=== PATIENT | female | born 1960 | race Two or more races ===

== ENCOUNTER 2021-05-01 16:27 | Emergency (ER) | payer OTHER ==
[~2021-05-01] VITALS: Ht 162.6 cm; Wt 86.2 kg
[2021-05-01 19:41] LABS: Basophils # (auto) 0 10 ^3/uL (0-0.2); Basophils % (auto) 0.3 % (0.0-2.0); Eosinophils # (auto) 0 10 ^3/uL (0-0.8); Eosinophils % (auto) 0.4 % (0.0-7.0); Hematocrit 43.4 % (36.0-46.0); Hemoglobin 14.7 g/dL (12.2-16.2); Lymphocytes # (auto) 1.9 10 ^3/uL (0.4-5.4); Lymphocytes % (auto) 33.6 % (10.0-50.0); Mean Corpuscular Hemoglobin 29.1 pg (28.0-32.0); Mean Corpuscular Hgb Conc. 33.9 g/dL (32.0-36.0); Monocytes # (auto) 0.6 10 ^3/uL (0-1.3); Monocytes % (auto) 10.4 % (0.0-12.0); Neutrophils # (auto) 3.2 10 ^3/uL (1.6-8.6); Neutrophils % (auto) 55.3 % (37.0-80.0); Nucleated Red Blood Cells % 0.2 %; Red Blood Cells 5.05 10^6/uL (4.0-5.20); Red Cell Distribution Width 13.1 % (11.8-14.3); White Blood Cell 5.8 10^3/uL (4.4-10.8)
[2021-05-01 19:57] LABS: Albumin 3.8 g/dL (3.4-5.0); Calcium 9.6 mg/dL (8.5-10.1); Potassium 4.5 mmol/L (3.5-5.1)
[2021-05-01 20:05] LABS: BUN/Creatinine Ratio 20.9; Bilirubin, Total 0.4 mg/dL (0.2-1.0); Total Protein 7.7 g/dL (6.4-8.2)
[2021-05-01] MEDS ORDERED: PRED20TA2 PO (21:45)
[2021-05-01] MEDS ORDERED: GUAI600T23 PO (21:45)
[2021-05-01] MEDS ORDERED: ALBU108A5 IN (21:45)
[2021-05-01 22:13] VITALS: BP 137/64
== END 2021-05-01 21:52 | disposition home or self-care (01) ==
LOC: ER 16:27
DX: U07.1 COVID-19 (principal); R06.02 Shortness of breath
CPT/HCPCS: 36415; 70450; 71045; 80053; 83880; 84484; 85025; 85379; 87426; 93005

== ENCOUNTER → 2022-06-16 | Outpatient (CLI) | payer OTHER ==
[~2022-06-16] MED LIST: ALBU108A5 IN; GUAI600T23 PO; PRED20TA2 PO
[2022-06-16 08:58] LABS: Basophils # (auto) 0.1 10 ^3/uL (0-0.2); Basophils % (auto) 0.6 % (0.0-2.0); Eosinophils # (auto) 0.1 10 ^3/uL (0-0.8); Eosinophils % (auto) 1.4 % (0.0-7.0); Hematocrit 44.1 % (36.0-46.0); Hemoglobin 14.6 g/dL (12.2-16.2); Lymphocytes # (auto) 1.9 10 ^3/uL (0.4-5.4); Mean Corpuscular Hemoglobin 29.2 pg (28.0-32.0); Mean Corpuscular Volume 88.5 fL (80.0-100.0); Monocytes # (auto) 0.6 10 ^3/uL (0-1.3); Monocytes % (auto) 6.4 % (0.0-12.0); Neutrophils # (auto) 6.6 10 ^3/uL (1.6-8.6); Neutrophils % (auto) 71.6 % (37.0-80.0); Red Blood Cells 4.98 10^6/uL (4.0-5.20); Red Cell Distribution Width 13.5 % (11.8-14.3); White Blood Cell 9.2 10^3/uL (4.4-10.8)
[2022-06-16 09:37] LABS: Urine Bacteria NONE SEEN /hpf (None Seen); Urine Blood Negative /uL (Negative); Urine Hyaline Cast MOD /lpf (0 - 2); Urine Mucus FEW (None Seen); Urine Specific Gravity 1.023 (1.001-1.035); Urine WBC 5 /hpf (0 - 5)
[2022-06-16 09:54] LABS: Albumin 3.5 g/dL (3.4-5.0); Calcium 8.8 mg/dL (8.5-10.1); Potassium 4.5 mmol/L (3.5-5.1); Total Protein 7.3 g/dL (6.4-8.2)
[2022-06-16 09:56] LABS: Bilirubin, Total 0.5 mg/dL (0.2-1.0)
== END | disposition home or self-care (01) ==
LOC: LAB 08:37
PROVIDERS: ATTEND Internal Medicine
DX: Z12.11 Encounter for screening for malignant neoplasm of colon (principal); E78.00 Pure hypercholesterolemia, unspecified; E11.69 Type 2 diabetes mellitus with other specified complication; R68.89 Other general symptoms and signs
CPT/HCPCS: 36415; 80053; 80061; 81001; 83036; 85025

== ENCOUNTER → 2022-09-24 | Outpatient (CLI) | payer OTHER ==
[2022-09-24 08:17] LABS: Basophils # (auto) 0 10 ^3/uL (0-0.2); Basophils % (auto) 0.9 % (0.0-2.0); Eosinophils # (auto) 0.1 10 ^3/uL (0-0.8); Eosinophils % (auto) 2.3 % (0.0-7.0); Hematocrit 43.2 % (36.0-46.0); Hemoglobin 14.4 g/dL (12.2-16.2); Lymphocytes # (auto) 1.4 10 ^3/uL (0.4-5.4); Lymphocytes % (auto) 26.2 % (10.0-50.0); Mean Corpuscular Hemoglobin 29.1 pg (28.0-32.0); Mean Corpuscular Hgb Conc. 33.4 g/dL (32.0-36.0); Mean Corpuscular Volume 87.1 fL (80.0-100.0); Monocytes # (auto) 0.3 10 ^3/uL (0-1.3); Monocytes % (auto) 6.4 % (0.0-12.0); Neutrophils # (auto) 3.5 10 ^3/uL (1.6-8.6); Neutrophils % (auto) 64.2 % (37.0-80.0); Nucleated Red Blood Cells % 0.1 %; Red Blood Cells 4.96 10^6/uL (4.0-5.20); Red Cell Distribution Width 13.8 % (11.8-14.3); White Blood Cell 5.4 10^3/uL (4.4-10.8)
[2022-09-24 09:00] LABS: Albumin 3.5 g/dL (3.4-5.0)
[2022-09-24 09:08] LABS: Bilirubin, Total 0.8 mg/dL (0.2-1.0); Calcium 9.1 mg/dL (8.5-10.1); Total Protein 7.3 g/dL (6.4-8.2)
[2022-09-24 09:12] LABS: Free T3 2.63 pg/mL (2.3-4.2)
[2022-09-24 09:31] LABS: Potassium 5.6 mmol/L (3.5-5.1)
== END | disposition home or self-care (01) ==
LOC: LAB 08:06
PROVIDERS: ATTEND Internal Medicine
DX: I10 Essential (primary) hypertension (principal); R06.02 Shortness of breath; E78.00 Pure hypercholesterolemia, unspecified
CPT/HCPCS: 36415; 80053; 80061; 84439; 84443; 84481; 85025

== ENCOUNTER → 2022-09-25 | Outpatient (CLI) | payer OTHER | END | disposition home or self-care (01) | LOC: XYW 09-23 08:50 | PROVIDERS: ATTEND Internal Medicine | DX: I07.1 Rheumatic tricuspid insufficiency (principal); R07.89 Other chest pain | CPT/HCPCS: 93306 ==

== ENCOUNTER → 2022-10-08 | Outpatient (CLI) | payer OTHER ==
[2022-10-08 11:26] LABS: Urine WBC None Seen /hpf (0 - 5)
[2022-10-08 11:43] LABS: Urine Bacteria NONE SEEN /hpf (None Seen); Urine Blood Negative /uL (Negative); Urine Specific Gravity 1.005 (1.001-1.035)
[2022-10-08 12:35] LABS: BUN/Creatinine Ratio 24.8 (10.0-20.0); Potassium 4.9 mmol/L (3.5-5.1)
== END | disposition home or self-care (01) ==
LOC: LAB 11:10
PROVIDERS: ATTEND Internal Medicine Gastroenterology
DX: K59.02 Outlet dysfunction constipation (principal)
CPT/HCPCS: 36415; 80048; 81001

== ENCOUNTER 2022-10-13 15:59 | Emergency (ER) | payer OTHER, MEDICAID ==
[~2022-10-13] VITALS: Ht 162.6 cm; Wt 98.0 kg
[2022-10-13 16:49] LABS: Basophils # (auto) 0.1 10 ^3/uL (0-0.2); Basophils % (auto) 0.6 % (0.0-2.0); Eosinophils # (auto) 0 10 ^3/uL (0-0.8); Eosinophils % (auto) 0.2 % (0.0-7.0); Hematocrit 41.8 % (36.0-46.0); Hemoglobin 13.8 g/dL (12.2-16.2); Lymphocytes # (auto) 2.4 10 ^3/uL (0.4-5.4); Lymphocytes % (auto) 15.2 % (10.0-50.0); Mean Corpuscular Hemoglobin 28.5 pg (28.0-32.0); Mean Corpuscular Volume 86.3 fL (80.0-100.0); Monocytes # (auto) 1.1 10 ^3/uL (0-1.3); Monocytes % (auto) 6.8 % (0.0-12.0); Neutrophils # (auto) 12.2 10 ^3/uL (1.6-8.6); Neutrophils % (auto) 77.2 % (37.0-80.0); Nucleated Red Blood Cells % 0.1 %; Red Blood Cells 4.85 10^6/uL (4.0-5.20); White Blood Cell 15.7 10^3/uL (4.4-10.8)
[2022-10-13 17:08] LABS: Albumin 3.8 g/dL (3.4-5.0); Potassium 4.6 mmol/L (3.5-5.1)
[2022-10-13 17:10] LABS: INR 0.99 (0.9-1.15); Partial Thromboplastin Time 27.3 SEC (24.5-34.5)
[2022-10-13 17:12] LABS: BUN/Creatinine Ratio 27.8 (10.0-20.0); Bilirubin, Total 0.5 mg/dL (0.2-1.0); Total Protein 7.3 g/dL (6.4-8.2)
[2022-10-13 17:15] LABS: Urine Bacteria FEW /hpf (None Seen); Urine Blood Negative /uL (Negative); Urine Hyaline Cast MOD /lpf (0 - 2); Urine Mucus FEW (None Seen); Urine Specific Gravity 1.026 (1.001-1.035); Urine WBC 7 /hpf (0 - 5)
[2022-10-13] MEDS ORDERED: IOHEXOL 350 MG/ML 100ML IJ ONE ×2 (20:01→20:02)
[2022-10-13] MEDS ORDERED: TIOTCAP IN (20:50)
[2022-10-13] MEDS ORDERED: NITR-87 PO (20:50)
[2022-10-13 21:16] VITALS: BP 112/66
== END 2022-10-13 21:18 | disposition home or self-care (01) ==
LOC: ER 15:59
DX: N39.0 Urinary tract infection, site not specified (principal); R06.02 Shortness of breath; J44.9 Chronic obstructive pulmonary disease, unspecified; E11.9 Type 2 diabetes mellitus without complications; Z79.899 Other long term (current) drug therapy; Z90.49 Acquired absence of other specified parts of digestive tract
CPT/HCPCS: 36415; 71045; 71275; 80053; 81001; 84484; 85025; 85610; 85730; 99285; Q9967; 93005

== ENCOUNTER → 2022-12-24 | Outpatient (CLI) | payer OTHER ==
[~2022-12-24] MED LIST changes: +NITR-87 PO; +TIOTCAP IN
[2022-12-24 08:47] LABS: Basophils # (auto) 0 10 ^3/uL (0-0.2); Basophils % (auto) 0.8 % (0.0-2.0); Eosinophils # (auto) 0.1 10 ^3/uL (0-0.8); Eosinophils % (auto) 2.7 % (0.0-7.0); Hematocrit 42.7 % (36.0-46.0); Hemoglobin 14.2 g/dL (12.2-16.2); Lymphocytes # (auto) 1.3 10 ^3/uL (0.4-5.4); Lymphocytes % (auto) 24.6 % (10.0-50.0); Mean Corpuscular Hemoglobin 29.3 pg (28.0-32.0); Mean Corpuscular Hgb Conc. 33.3 g/dL (32.0-36.0); Monocytes # (auto) 0.3 10 ^3/uL (0-1.3); Monocytes % (auto) 6.6 % (0.0-12.0); Neutrophils # (auto) 3.4 10 ^3/uL (1.6-8.6); Neutrophils % (auto) 65.3 % (37.0-80.0); Red Blood Cells 4.85 10^6/uL (4.0-5.20); Red Cell Distribution Width 14.3 % (11.8-14.3); White Blood Cell 5.2 10^3/uL (4.4-10.8)
[2022-12-24 08:56] LABS: Urine Bacteria NONE SEEN /hpf (None Seen); Urine Blood Negative /uL (Negative); Urine Clarity Clear (Clear); Urine Color Yellow (Yellow); Urine Mucus FEW (None Seen); Urine Protein, UAD Negative (Negative); Urine Specific Gravity 1.019 (1.001-1.035); Urine Urobilinogen Normal (Negative); Urine WBC 7 /hpf (0 - 5); Urine pH 5.5 (5.0-8.0)
[2022-12-24 09:29] LABS: Alanine Aminotransferase 19 U/L (7-40); Albumin 4.8 g/dL (3.2-4.8); Alkaline Phosphatase 67 U/L (46-116); Anion Gap 5 (5-15); Aspartate Aminotransferase 15 U/L (13-40); BUN/Creatinine Ratio 19.3 (10.0-20.0); Blood Urea Nitrogen 22 mg/dL (9-23); Calcium 9.7 mg/dL (8.7-10.4); Carbon Dioxide 25 mmol/L (20-30); Chloride 111 mmol/L (98-107); Glucose 103 mg/dL (74-106); Potassium 5.1 mmol/L (3.5-5.1); Sodium 141 mmol/L (136-145)
[2022-12-24 09:30] LABS: Bilirubin, Total 0.7 mg/dL (0.2-1.0); Total Protein 7.2 g/dL (5.7-8.2)
[2022-12-24 09:42] LABS: Triglycerides 90 mg/dL (< 150)
[2022-12-24 09:43] LABS: LDL Cholesterol 99 mg/dL (< 100)
[2022-12-24 09:44] LABS: Cholesterol 173 mg/dL (< 200); HDL Cholesterol 61 mg/dL (40-59)
== END | disposition home or self-care (01) ==
LOC: LAB 08:22
PROVIDERS: ATTEND Internal Medicine
DX: Z12.11 Encounter for screening for malignant neoplasm of colon (principal); E11.69 Type 2 diabetes mellitus with other specified complication; E78.00 Pure hypercholesterolemia, unspecified
CPT/HCPCS: 36415; 80053; 80061; 81001; 83036; 85025

== ENCOUNTER → 2023-01-16 | Outpatient (CLI) | payer OTHER, MEDICAID ==
[~2023-01-16] MED LIST changes: +ALBUTEROL SULF 2.5 MG/0.5ML(0.5%) NEB SOLN ONE
== END | disposition home or self-care (01) ==
LOC: RT 10:52
PROVIDERS: ATTEND Internal Medicine Pulmonary Disease
DX: J44.9 Chronic obstructive pulmonary disease, unspecified (principal); R06.09 Other forms of dyspnea
CPT/HCPCS: 94060; 94727; 94729

== ENCOUNTER → 2023-05-18 | Outpatient (CLI) | payer OTHER ==
[~2023-05-18] MED LIST changes: -ALBUTEROL SULF 2.5 MG/0.5ML(0.5%) NEB SOLN ONE
[2023-05-18 10:10] LABS: Basophils # (auto) 0 10 ^3/uL (0-0.2); Basophils % (auto) 0.6 % (0.0-2.0); Eosinophils # (auto) 0.1 10 ^3/uL (0-0.8); Eosinophils % (auto) 2.3 % (0.0-7.0); Hematocrit 42.6 % (36.0-46.0); Hemoglobin 14.1 g/dL (12.2-16.2); Lymphocytes # (auto) 1.3 10 ^3/uL (0.4-5.4); Lymphocytes % (auto) 26.3 % (10.0-50.0); Mean Corpuscular Hemoglobin 28.9 pg (28.0-32.0); Mean Corpuscular Volume 87.6 fL (80.0-100.0); Monocytes # (auto) 0.3 10 ^3/uL (0-1.3); Monocytes % (auto) 5.9 % (0.0-12.0); Neutrophils # (auto) 3.3 10 ^3/uL (1.6-8.6); Neutrophils % (auto) 64.9 % (37.0-80.0); Red Blood Cells 4.86 10^6/uL (4.0-5.20); Red Cell Distribution Width 13.6 % (11.8-14.3)
[2023-05-18 10:28] LABS: Alanine Aminotransferase 21 U/L (7-40); Alkaline Phosphatase 71 U/L (46-116); Anion Gap 6 (5-15); BUN/Creatinine Ratio 15.3 (10.0-20.0); Blood Urea Nitrogen 19 mg/dL (9-23); Calcium 9.7 mg/dL (8.5-10.1); Carbon Dioxide 23 mmol/L (20-30); Chloride 113 mmol/L (98-107); Glucose 182 mg/dL (74-106); LDL Cholesterol 98 mg/dL (< 100); Sodium 142 mmol/L (136-145); Triglycerides 98 mg/dL (< 150)
[2023-05-18 10:29] LABS: Albumin 4.3 g/dL (3.2-4.8); Bilirubin, Total 0.7 mg/dL (0.2-1.0); Cholesterol 159 mg/dL (< 200); HDL Cholesterol 51 mg/dL (40-59); Total Protein 6.6 g/dL (5.7-8.2)
[2023-05-18 10:48] LABS: Aspartate Aminotransferase 26 U/L (13-40)
[2023-05-18 11:18] LABS: Potassium 5.8 mmol/L (3.5-5.1)
[2023-05-18 11:34] LABS: Free T3 3.23 pg/mL (2.3-4.2); Free T4 (Free Thyroxine) 1.25 ng/dL (0.89-1.76)
== END | disposition home or self-care (01) ==
LOC: LAB 09:07
PROVIDERS: ATTEND Internal Medicine
DX: E11.65 Type 2 diabetes mellitus with hyperglycemia (principal); R06.02 Shortness of breath; R00.2 Palpitations; I10 Essential (primary) hypertension
CPT/HCPCS: 36415; 80053; 80061; 83036; 84439; 84443; 84481; 85025

== ENCOUNTER → 2023-05-19 | Outpatient (CLI) | payer OTHER | END | disposition home or self-care (01) | LOC: LAB 14:11 | PROVIDERS: ATTEND Internal Medicine | DX: I10 Essential (primary) hypertension (principal); E78.5 Hyperlipidemia, unspecified | CPT/HCPCS: 36415; 84132 ==

== ENCOUNTER → 2023-06-03 | Outpatient (CLI) | payer OTHER ==
[2023-06-03 12:26] LABS: Alanine Aminotransferase 21 U/L (7-40); Albumin 4.4 g/dL (3.2-4.8); Alkaline Phosphatase 67 U/L (46-116); Anion Gap 9 (5-15); Aspartate Aminotransferase 20 U/L (13-40); BUN/Creatinine Ratio 20.5 (10.0-20.0); Bilirubin, Total 0.7 mg/dL (0.2-1.0); Blood Urea Nitrogen 23 mg/dL (9-23); Calcium 9.8 mg/dL (8.5-10.1); Carbon Dioxide 22 mmol/L (20-30); Chloride 109 mmol/L (98-107); Glucose 158 mg/dL (74-106); Potassium 4.7 mmol/L (3.5-5.1); Sodium 140 mmol/L (136-145)
== END | disposition home or self-care (01) ==
LOC: LAB 10:40
PROVIDERS: ATTEND Internal Medicine
DX: I10 Essential (primary) hypertension (principal)
CPT/HCPCS: 36415; 80053

== ENCOUNTER → 2023-06-17 | Outpatient (CLI) | payer OTHER ==
[2023-06-17 10:19] LABS: Alanine Aminotransferase 29 U/L (7-40); Albumin 4.4 g/dL (3.2-4.8); Alkaline Phosphatase 69 U/L (46-116); Anion Gap 6 (5-15); Aspartate Aminotransferase 34 U/L (13-40); BUN/Creatinine Ratio 16.5 (10.0-20.0); Blood Urea Nitrogen 19 mg/dL (9-23); Calcium 9.7 mg/dL (8.5-10.1); Carbon Dioxide 26 mmol/L (20-30); Chloride 111 mmol/L (98-107); Cholesterol 154 mg/dL (< 200); Glucose 116 mg/dL (74-106); HDL Cholesterol 50 mg/dL (40-59); LDL Cholesterol 89 mg/dL (< 100); Potassium 5.4 mmol/L (3.5-5.1); Sodium 143 mmol/L (136-145); Triglycerides 110 mg/dL (< 150)
[2023-06-17 10:20] LABS: Total Protein 6.8 g/dL (5.7-8.2)
[2023-06-17 10:22] LABS: Basophils # (auto) 0 10 ^3/uL (0-0.2); Basophils % (auto) 0.6 % (0.0-2.0); Eosinophils # (auto) 0.1 10 ^3/uL (0-0.8); Hemoglobin 13.8 g/dL (12.2-16.2); Lymphocytes # (auto) 1.5 10 ^3/uL (0.4-5.4); Lymphocytes % (auto) 24.5 % (10.0-50.0); Mean Corpuscular Hemoglobin 28.5 pg (28.0-32.0); Mean Corpuscular Hgb Conc. 32.8 g/dL (32.0-36.0); Monocytes # (auto) 0.4 10 ^3/uL (0-1.3); Monocytes % (auto) 7.5 % (0.0-12.0); Neutrophils # (auto) 3.9 10 ^3/uL (1.6-8.6); Neutrophils % (auto) 65.4 % (37.0-80.0); Nucleated Red Blood Cells % 0.1 %; Red Blood Cells 4.82 10^6/uL (4.0-5.20); Red Cell Distribution Width 13.6 % (11.8-14.3); White Blood Cell 5.9 10^3/uL (4.4-10.8)
[2023-06-17 12:20] LABS: Creatinine, Urine 81.8 mg/dL (30.0-125.0)
== END | disposition home or self-care (01) ==
LOC: LAB 09:44
PROVIDERS: ATTEND Internal Medicine
DX: Z12.11 Encounter for screening for malignant neoplasm of colon (principal); E78.00 Pure hypercholesterolemia, unspecified; R68.89 Other general symptoms and signs; E11.69 Type 2 diabetes mellitus with other specified complication
CPT/HCPCS: 36415; 80053; 80061; 82043; 82570; 83036; 85025

== ENCOUNTER 2023-07-07 09:24 | Day surgery (SDC) | payer OTHER, MEDICAID ==
[2023-07-01 11:17] LABS: Basophils # (auto) 0.1 10 ^3/uL (0-0.2); Eosinophils # (auto) 0.1 10 ^3/uL (0-0.8); Eosinophils % (auto) 1.7 % (0.0-7.0); Hematocrit 44.4 % (36.0-46.0); Hemoglobin 14.6 g/dL (12.2-16.2); Lymphocytes # (auto) 1.8 10 ^3/uL (0.4-5.4); Lymphocytes % (auto) 26.5 % (10.0-50.0); Mean Corpuscular Hemoglobin 28.7 pg (28.0-32.0); Mean Corpuscular Hgb Conc. 32.9 g/dL (32.0-36.0); Mean Corpuscular Volume 87.2 fL (80.0-100.0); Monocytes # (auto) 0.4 10 ^3/uL (0-1.3); Monocytes % (auto) 6.7 % (0.0-12.0); Neutrophils # (auto) 4.3 10 ^3/uL (1.6-8.6); Neutrophils % (auto) 64.1 % (37.0-80.0); Nucleated Red Blood Cells % 0.1 %; Red Cell Distribution Width 13.9 % (11.8-14.3); White Blood Cell 6.6 10^3/uL (4.4-10.8)
[2023-07-01 11:39] LABS: INR 0.97 (0.9-1.15); Partial Thromboplastin Time 30.4 SEC (24.5-34.5); Prothrombin Time 10.2 sec (9.3-11.8)
[2023-07-01 12:16] LABS: Alanine Aminotransferase 21 U/L (7-40); Albumin 4.5 g/dL (3.2-4.8); Alkaline Phosphatase 72 U/L (46-116); Anion Gap 5 (5-15); Aspartate Aminotransferase 21 U/L (13-40); BUN/Creatinine Ratio 22.5 (10.0-20.0); Bilirubin, Total 0.8 mg/dL (0.2-1.0); Blood Urea Nitrogen 27 mg/dL (9-23); Calcium 9.8 mg/dL (8.7-10.4); Carbon Dioxide 25 mmol/L (20-30); Chloride 111 mmol/L (98-107); Glucose 142 mg/dL (74-106); Potassium 5.4 mmol/L (3.5-5.1); Sodium 141 mmol/L (136-145); Total Protein 7.4 g/dL (5.7-8.2)
[~2023-07-07] VITALS: Ht 162.6 cm; Wt 97.5 kg
[~2023-07-07 09:24] MED LIST changes: -ALBU108A5 IN; +GLYB5TAB9 PO; -GUAI600T23 PO; +LOSA-533 PO; +LOVA20TA4 PO; +METF-370 PO; -NITR-87 PO; -PRED20TA2 PO; -TIOTCAP IN
[2023-07-07] MEDS ORDERED: SODIUM CHLORIDE LOCK 10 ML ONE (09:31)
[2023-07-07 11:03] VITALS: O2SAT 98
[2023-07-07] MEDS: MIDAZOLAM HCL 5 MG/ML-1ML VIAL ONE (11:12)
[2023-07-07] MEDS: diphenhdrAMINE HCL 50 MG/1 ML VL ONE (11:12)
[2023-07-07] MEDS: fentaNYL CITRATE 100 MCG/2 ML VL ONE (11:12)
[2023-07-07 11:44] VITALS: TEMP 97.2; O2SAT 100
[2023-07-07 12:14] VITALS: BP 129/75; PULSE 71; RESP 12; O2SAT 99
== END 2023-07-07 12:20 | disposition home or self-care (01) ==
LOC: GI 09:24
PROVIDERS: ATTEND Internal Medicine Gastroenterology
DX: K59.00 Constipation, unspecified (principal); D12.0 Benign neoplasm of cecum; D12.4 Benign neoplasm of descending colon; D12.3 Benign neoplasm of transverse colon; D17.5 Benign lipomatous neoplasm of intra-abdominal organs; K57.30 Diverticulosis of large intestine without perforation or abscess without bleeding; K64.8 Other hemorrhoids; I12.9 Hypertensive chronic kidney disease with stage 1 through stage 4 chronic kidney disease, or unspecified chronic kidney disease; E11.22 Type 2 diabetes mellitus with diabetic chronic kidney disease; N18.30 Chronic kidney disease, stage 3 unspecified; M19.90 Unspecified osteoarthritis, unspecified site; E78.00 Pure hypercholesterolemia, unspecified; J44.9 Chronic obstructive pulmonary disease, unspecified; Z86.010 Personal history of colon polyps; Z90.49 Acquired absence of other specified parts of digestive tract; Z98.41 Cataract extraction status, right eye; Z87.891 Personal history of nicotine dependence; Z98.42 Cataract extraction status, left eye; Z98.890 Other specified postprocedural states; Z79.84 Long term (current) use of oral hypoglycemic drugs; Z79.899 Other long term (current) drug therapy
CPT/HCPCS: 36415; 45380; 45385; 80053; 82962; 85025; 85610; 85730; 88305; J1200; J2250; J3010; J7030; 99152; 99153

== ENCOUNTER → 2023-10-26 | Outpatient (CLI) | payer OTHER ==
[2023-10-26 08:05] LABS: Basophils # (auto) 0.1 10 ^3/uL (0-0.2); Eosinophils # (auto) 0.1 10 ^3/uL (0-0.8); Eosinophils % (auto) 2.3 % (0.0-7.0); Hematocrit 42.7 % (36.0-46.0); Hemoglobin 14.3 g/dL (12.2-16.2); Lymphocytes # (auto) 1.9 10 ^3/uL (0.4-5.4); Lymphocytes % (auto) 29.6 % (10.0-50.0); Mean Corpuscular Hemoglobin 28.8 pg (28.0-32.0); Mean Corpuscular Hgb Conc. 33.5 g/dL (32.0-36.0); Mean Corpuscular Volume 85.9 fL (80.0-100.0); Monocytes # (auto) 0.4 10 ^3/uL (0-1.3); Monocytes % (auto) 6.4 % (0.0-12.0); Neutrophils # (auto) 3.8 10 ^3/uL (1.6-8.6); Neutrophils % (auto) 60.7 % (37.0-80.0); Nucleated Red Blood Cells % 0.1 %; Red Blood Cells 4.97 10^6/uL (4.0-5.20); Red Cell Distribution Width 13.8 % (11.8-14.3); White Blood Cell 6.3 10^3/uL (4.4-10.8)
[2023-10-26 09:41] LABS: Albumin 4.2 g/dL (3.2-4.8); Bilirubin, Direct 0.3 mg/dL (<0.3); Bilirubin, Total 0.8 mg/dL (0.2-1.0); Total Protein 6.6 g/dL (5.7-8.2)
[2023-10-26 09:43] LABS: Protein, Urine 30.7 mg/dL (0.0-11.9)
[2023-10-26 09:46] LABS: Creatinine, Urine 143.29 mg/dL (30.0-125.0); Urine Protein/Creatinine Ratio 0.21
[2023-10-26 12:34] LABS: Uric Acid 6.2 mg/dL (3.1-7.8)
== END | disposition home or self-care (01) ==
LOC: LAB 07:41
PROVIDERS: ATTEND Internal Medicine
DX: R80.9 Proteinuria, unspecified (principal); E22.9 Hyperfunction of pituitary gland, unspecified; D63.1 Anemia in chronic kidney disease; N18.30 Chronic kidney disease, stage 3 unspecified
CPT/HCPCS: 36415; 80076; 82570; 83036; 84156; 84550; 85025

== ENCOUNTER → 2023-11-02 | Outpatient (CLI) | payer OTHER ==
[2023-11-02 14:17] LABS: Basophils # (auto) 0.1 10 ^3/uL (0-0.2); Basophils % (auto) 0.8 % (0.0-2.0); Eosinophils # (auto) 0.1 10 ^3/uL (0-0.8); Eosinophils % (auto) 1.8 % (0.0-7.0); Hematocrit 43.4 % (36.0-46.0); Hemoglobin 14.5 g/dL (12.2-16.2); Lymphocytes # (auto) 2.2 10 ^3/uL (0.4-5.4); Lymphocytes % (auto) 29.5 % (10.0-50.0); Mean Corpuscular Hemoglobin 28.8 pg (28.0-32.0); Mean Corpuscular Hgb Conc. 33.5 g/dL (32.0-36.0); Mean Corpuscular Volume 86.1 fL (80.0-100.0); Monocytes # (auto) 0.5 10 ^3/uL (0-1.3); Monocytes % (auto) 6.5 % (0.0-12.0); Neutrophils # (auto) 4.6 10 ^3/uL (1.6-8.6); Neutrophils % (auto) 61.4 % (37.0-80.0); Red Blood Cells 5.04 10^6/uL (4.0-5.20); White Blood Cell 7.5 10^3/uL (4.4-10.8)
[2023-11-02 14:31] LABS: Urine Bacteria FEW /hpf (None Seen); Urine Blood Negative /uL (Negative); Urine Clarity Clear (Clear); Urine Color Light-Yellow (Yellow); Urine Protein, UAD Negative (Negative); Urine Specific Gravity 1.014 (1.001-1.035); Urine Urobilinogen Normal (Negative); Urine WBC 4 /hpf (0 - 5)
[2023-11-02 14:35] LABS: Potassium 4.8 mmol/L (3.5-5.1)
[2023-11-02 14:36] LABS: Calcium 9.8 mg/dL (8.7-10.4)
[2023-11-02 14:37] LABS: Protein, Urine 11.6 mg/dL (0.0-11.9)
[2023-11-02 14:40] LABS: Creatinine, Urine 91.8 mg/dL (30.0-125.0); Urine Protein/Creatinine Ratio 0.13
[2023-11-02 14:41] LABS: BUN/Creatinine Ratio 19.7 (10.0-20.0)
[2023-11-02 14:42] LABS: Albumin 4.5 g/dL (3.2-4.8)
[2023-11-02 14:43] LABS: Phosphorus 4.1 mg/dL (2.4-5.1)
== END | disposition home or self-care (01) ==
LOC: LAB 13:57
PROVIDERS: ATTEND Internal Medicine
DX: E55.9 Vitamin D deficiency, unspecified (principal); N18.30 Chronic kidney disease, stage 3 unspecified; M10.9 Gout, unspecified; D63.1 Anemia in chronic kidney disease
CPT/HCPCS: 36415; 80069; 81001; 82570; 83970; 84156; 84550; 85025

== ENCOUNTER 2023-12-04 08:59 | Day surgery (SDC) | payer OTHER, MEDICAID ==
[2023-11-27 11:10] LABS: Basophils # (auto) 0.1 10 ^3/uL (0-0.2); Basophils % (auto) 0.8 % (0.0-2.0); Eosinophils # (auto) 0.1 10 ^3/uL (0-0.8); Eosinophils % (auto) 2.1 % (0.0-7.0); Hematocrit 43.2 % (36.0-46.0); Hemoglobin 14.4 g/dL (12.2-16.2); Lymphocytes # (auto) 1.9 10 ^3/uL (0.4-5.4); Lymphocytes % (auto) 27.6 % (10.0-50.0); Mean Corpuscular Hemoglobin 29.1 pg (28.0-32.0); Mean Corpuscular Hgb Conc. 33.4 g/dL (32.0-36.0); Monocytes # (auto) 0.5 10 ^3/uL (0-1.3); Monocytes % (auto) 7.3 % (0.0-12.0); Neutrophils # (auto) 4.2 10 ^3/uL (1.6-8.6); Neutrophils % (auto) 62.2 % (37.0-80.0); Nucleated Red Blood Cells % 0.1 %; Platelet Count (auto) 227 10^3/uL (140-450); Red Blood Cells 4.97 10^6/uL (4.0-5.20); Red Cell Distribution Width 13.7 % (11.8-14.3); White Blood Cell 6.8 10^3/uL (4.4-10.8)
[2023-11-27 11:42] LABS: Alanine Aminotransferase 33 U/L (7-40); Albumin 4.4 g/dL (3.2-4.8); Alkaline Phosphatase 81 U/L (46-116); Anion Gap 7 (5-15); Aspartate Aminotransferase 19 U/L (13-40); BUN/Creatinine Ratio 16.4 (10.0-20.0); Blood Urea Nitrogen 21 mg/dL (9-23); Calcium 10.2 mg/dL (8.7-10.4); Carbon Dioxide 21 mmol/L (20-30); Chloride 109 mmol/L (98-107); Glucose 187 mg/dL (74-106); Potassium 5.5 mmol/L (3.5-5.1); Sodium 137 mmol/L (136-145)
[2023-11-27 11:43] LABS: Bilirubin, Total 0.9 mg/dL (0.2-1.0); Total Protein 7.2 g/dL (5.7-8.2)
[2023-11-27 11:48] LABS: INR 0.97 (0.9-1.15); Prothrombin Time 10.3 sec (9.3-11.8)
[~2023-12-04] VITALS: Ht 162.6 cm; Wt 96.6 kg
[~2023-12-04 08:59] MED LIST changes: +HYDR-4072 PO; +LOS25T PO; -LOSA-533 PO
[2023-12-04] MEDS ORDERED: SODIUM CHLORIDE LOCK 10 ML ONE (09:24)
[2023-12-04] MEDS: MIDAZOLAM HCL 5 MG/ML-1ML VIAL ONE (10:03)
[2023-12-04] MEDS: diphenhdrAMINE HCL 50 MG/1 ML VL ONE (10:03)
[2023-12-04] MEDS: fentaNYL CITRATE 100 MCG/2 ML VL ONE (10:03)
[2023-12-04] MEDS: LIDOCAINE VISCOUS 2% 15ML UD ONE (10:03)
[2023-12-04 10:18] VITALS: TEMP 97.2; O2SAT 98
[2023-12-04 10:48] VITALS: BP 114/59; PULSE 65; RESP 14; O2SAT 94
== END 2023-12-04 11:00 | disposition home or self-care (01) ==
LOC: GI 08:59
PROVIDERS: ATTEND Internal Medicine Gastroenterology
DX: R12 Heartburn (principal); K29.50 Unspecified chronic gastritis without bleeding; K21.00 Gastro-esophageal reflux disease with esophagitis, without bleeding; I12.9 Hypertensive chronic kidney disease with stage 1 through stage 4 chronic kidney disease, or unspecified chronic kidney disease; E11.22 Type 2 diabetes mellitus with diabetic chronic kidney disease; N18.30 Chronic kidney disease, stage 3 unspecified; K22.2 Esophageal obstruction; K29.80 Duodenitis without bleeding; E66.9 Obesity, unspecified; Z68.36 Body mass index [BMI] 36.0-36.9, adult; Z79.84 Long term (current) use of oral hypoglycemic drugs; Z79.899 Other long term (current) drug therapy; Z90.49 Acquired absence of other specified parts of digestive tract; Z98.890 Other specified postprocedural states; Z87.891 Personal history of nicotine dependence
CPT/HCPCS: 36415; 43239; 80053; 82962; 85025; 85610; 85730; 88305; 88312; 88342; J1200; J2250; J3010

== ENCOUNTER → 2024-03-08 | Outpatient (CLI) | payer OTHER ==
[2024-03-08 08:31] LABS: Urine Bacteria None Seen /hpf (None Seen)
[2024-03-08 08:37] LABS: Basophils # (auto) 0 10 ^3/uL (0-0.2); Basophils % (auto) 0.8 % (0.0-2.0); Eosinophils # (auto) 0.2 10 ^3/uL (0-0.8); Eosinophils % (auto) 3.4 % (0.0-7.0); Hematocrit 42.5 % (36.0-46.0); Hemoglobin 14.2 g/dL (12.2-16.2); Lymphocytes # (auto) 1.3 10 ^3/uL (0.4-5.4); Lymphocytes % (auto) 22.8 % (10.0-50.0); Mean Corpuscular Hemoglobin 28.7 pg (28.0-32.0); Mean Corpuscular Hgb Conc. 33.3 g/dL (32.0-36.0); Mean Corpuscular Volume 86.2 fL (80.0-100.0); Monocytes # (auto) 0.3 10 ^3/uL (0-1.3); Monocytes % (auto) 5.8 % (0.0-12.0); Neutrophils # (auto) 3.9 10 ^3/uL (1.6-8.6); Neutrophils % (auto) 67.2 % (37.0-80.0); Platelet Count (auto) 223 10^3/uL (140-450); Red Blood Cells 4.94 10^6/uL (4.0-5.20); Red Cell Distribution Width 13.4 % (11.8-14.3); White Blood Cell 5.8 10^3/uL (4.4-10.8)
[2024-03-08 08:46] LABS: Urine Blood Negative /uL (Negative); Urine Clarity Clear (Clear); Urine Color Light-Yellow (Yellow); Urine Hyaline Cast FEW /lpf (0 - 2); Urine Mucus FEW (None Seen); Urine Protein, UAD TRACE (Negative); Urine Specific Gravity 1.019 (1.001-1.035); Urine Urobilinogen Normal (Negative); Urine WBC 4 /hpf (0 - 5); Urine pH 5.5 (5.0-9.0)
[2024-03-08 09:08] LABS: Alanine Aminotransferase 27 U/L (7-40); Albumin 4.2 g/dL (3.2-4.8); Alkaline Phosphatase 89 U/L (46-116); Anion Gap 9 (5-15); Aspartate Aminotransferase 15 U/L (13-40); BUN/Creatinine Ratio 17.3 (10.0-20.0); Blood Urea Nitrogen 23 mg/dL (9-23); Calcium 9.8 mg/dL (8.7-10.4); Carbon Dioxide 21 mmol/L (20-31); Chloride 107 mmol/L (98-107); Glucose 307 mg/dL (74-106); LDL Cholesterol 123 mg/dL (< 100); Potassium 5.2 mmol/L (3.5-5.1); Sodium 137 mmol/L (136-145); Triglycerides 192 mg/dL (< 150)
[2024-03-08 09:09] LABS: Bilirubin, Total 0.7 mg/dL (0.2-1.0); Cholesterol 196 mg/dL (< 200); HDL Cholesterol 47 mg/dL (40-59); Total Protein 6.9 g/dL (5.7-8.2)
== END | disposition home or self-care (01) ==
LOC: LAB 08:06
PROVIDERS: ATTEND Internal Medicine
DX: E11.69 Type 2 diabetes mellitus with other specified complication (principal); E78.00 Pure hypercholesterolemia, unspecified
CPT/HCPCS: 36415; 80053; 80061; 81001; 83036; 85025

== ENCOUNTER 2024-08-05 11:36 | Inpatient (IN) | payer OTHER, MEDICAID ==
[~2024-08-05] VITALS: Ht 162.6 cm; Wt 109.5 kg
--- NOTE | 2024-08-05 12:39 | ED.PDOC ---
HPI (NEURO) HPI Comments 64-year-old female presents with a chief complaint of dizziness and tingling in her body. Patient states that she was driving [place] the [place] and started to feel "like everything was spinning and my vision got dark, like I was going to pass out". Patient mentions that she went back home and her blood sugar reading was 320. Patients blood sugar in triage is 261. Patient denies having breakfast this morning. Patient denies any falls or injuries from her dizziness. Patient mentions that she feels the dizziness exacerbated when ambulating. PMHx: HTN, HLD, DM, COPD, Stage 3 Kidney Disease, Emphysema, UTIs PSHx: Cholecystectomy, Carpal Tunnel Repair [place]: dizzy/numb. shaky, sob. no breakfast. HPI: Poor Historian. REVIEW OF SYSTEMS: CONSTITUTIONAL: Denies acute: fever, diaphoresis, chills, HEAD: Denies acute: headache, photophobia Eyes: Denies acute: Double vision, vision loss, eye pain, eye discharge. EARS: Denies acute: tinnitus, hearing loss, ear discharge, ear pain, THROAT: Denies acute: sore throat, swelling, difficulty swallowing , pain with swa llowing, change in voice. NECK: Denies acute: neck pain, neck swelling, stiff neck. HEART: Denies acute : chest pain, palpitations, LUNGS: Denies acute: SOB, wheezing, cough, hemoptysis ABDOMEN: Denies acute: abdominal pain, Nausea, Vomiting, diarrhea, melena , hematemesis, hematochezia SKIN: Denies acute: rash, redness, lesions, itchiness. EXTREMITIES: Denies acute: calf pain, , , weakness, denies pain in extremity. Denies acute: Low back pain. Neuro: Denies acute: focal neurological deficit, motor or sensory focal neurological deficit, tremors, seizure like activity, confusion, , change in mental status, loss of bowel or bladder function, cauda equina like symptoms. : Denies acute: dysuria, hematuria, flank pain, increase in urinary frequency. PSYCH: Denies acute: hallucination, suicidal ideation, homicidal ideation. FEMALE: Denies acute: abnormal vaginal bleeding, foul odor, unusual discharge. PHYSICAL EXAM: General: ----mild----acute distress, awake and alert. Head: normocephalic, atraumatic. Neck: supple, trachea is midline, no swelling. Throat: Normal phonation. Eyes:, no erythema, no purulent discharge, no proptosis, no icterus. Heart: regular rate, regular rhythm, no significant murmur appreciated. Lungs: no apparent respiratory distress, Able to speak in full sentences. No wheezing, no rhonchi, no crackles. No stridors Clear to auscultation bilaterally. Abdomen: non tender to palpation, non distended, soft, no guarding, no rebound, + bowel sounds. Neuro: Awake, Alert, oriented to name, self, situation, follows commands GCS=15. Speech is normal. Skin: no petechia, no purpura, no cyanosis, non-pale, not jaundice. Lower extremities: --no - Pitting edema no deformity, no focal swelling, no calf TTP. Makes eye contact. moves all four extremities. Face: no apparent facial droop. Ambulating in the ED independently. No nuchal rigidity, Kernig's sign, Brudzinski's sign, no meningeal signs. ED COURSE: Chief Complaint: Dizziness Time Seen by MD: 12:18 Primary Care Provider: DAX Morgan Notes: Nurses Notes, Medications, Allergies Information Source: Patient Mode of Arrival: Ambulatory Past Medical History PAST MEDICAL HISTORY: CKF, COPD, DM, High Lipids Surgical History: Cholecystectomy Surgical History (Other): Carpal Tunnel Syndrome PERCHER History: No Pertinent PERCHER History Family History Family History: Family hx of DM, Family hx of Cancer Social History Smoker: Non-Smoker Alcohol: Denies ETOH Use Drugs: Denies Drug Use Lives In: Home Was a procedure done? Was a procedure done?: No Differential Diagnosis (SZ) Seizure: N/A General Weakness: Anemia, CVA, Dehydration, Dysrhythmia, Electrolyte imbalance, Encephalopathy, Guillain-Flora, Hypoglycemia, Hypotension, Hypovolemia, Labyrinthitis, Meniere's disease, Myasthenia gravis, Myocardial infarction, Pulmonary embolus, Renal failure, Repiratory failure, TIA, VBI, Vertigo: central, Vertigo: peripheral, Vestibular neuronitis, Other (Includes but not limited to thyroid disease, encephalopathy, electrolyte abnormality, sepsis, infection, intracranial pathology, drug adverse effects, arrhythmia, kidney insufficiency, ACS, CVA, malignancy, anemia) X-Ray, Labs, Meds, VS Vital Signs Date Time Temp Pulse Resp B/P (MAP) Pulse Ox O2 Delivery O2 Flow Rate FiO2 08/05/24 19:54 97.6 73 20 153/77 (102) 98 97.6 08/05/24 16:00 76 18 96 Room Air* 0 21 08/05/24 15:59 97.8 86 15 153/90 (111) 97 97.8 08/05/24 12:39 109 08/05/24 11:37 99.0 80 16 178/86 (116) 96 99.0 Lab Test 08/05/24 20:11 08/05/24 16:14 08/05/24 16:02 08/05/24 14:23 Range/Units POC Glucose 159 H 215 H 70-106 mg/dl Troponin I High Sensitivity 4 </=34 ng/L Blood Gas Specimen Type Arterial Blood Gas Sample Site Right radial Blood Gas Patient Temperature 37.0 Arterial Blood Date Drawn [id number] Arterial Blood pH 7.412 7.350-7.450 Arterial Blood Partial Pressure CO2 25.1 L 32.0-45.0 mmHg Arterial Blood Partial Pressure O2 84.8 83.0-108.0 mmHg Arterial Blood HCO3 15.6 L 21.0-28.0 mmol/L Arterial Blood Oxygen Saturation 97.0 94.0-98.0 % Arterial Blood Base Excess -7.1 L -2.0-3.0 mmol/L Arterial Blood Oxyhemoglobin 96.3 94.0-98.0 % Arterial Blood Carboxyhemoglobin 0.4 L 0.5-1.5 % Arterial Blood Methemoglobin 0.3 0.0-1.5 % Gopal Test Yes Blood Gas Total Hemoglobin 14.30 12.0-16.0 g/dL Blood Gas Modality Room air FiO2 % 21.0 Test 08/05/24 14:16 08/05/24 13:00 08/05/24 12:33 08/05/24 12:16 Range/Units Lactic Acid Level 1.4 3.0 *H 0.4-2.0 mmol/L Troponin I High Sensitivity 5 4 </=34 ng/L White Blood Count 7.4 4.4-10.8 10^3/uL Red Blood Count 5.10 4.0-5.20 10^6/uL Hemoglobin 14.5 12.2-16.2 g/dL Hematocrit 43.3 36.0-46.0 % Mean Corpuscular Volume 84.9 80.0-100.0 fL Mean Corpuscular Hemoglobin 28.5 28.0-32.0 pg Mean Corpuscular Hemoglobin Concent 33.5 32.0-36.0 g/dL Red Cell Distribution Width 13.5 11.8-14.3 % Platelet Count 226 140-450 10^3/uL Mean Platelet Volume 8.6 6.9-10.8 fL Neutrophils (%) (Auto) 72.0 37.0-80.0 % Lymphocytes (%) (Auto) 20.6 10.0-50.0 % Monocytes (%) (Auto) 5.1 0.0-12.0 % Eosinophils (%) (Auto) 1.7 0.0-7.0 % Basophils (%) (Auto) 0.6 0.0-2.0 % Neutrophils # (Auto) 5.3 1.6-8.6 10 ^3/uL Lymphocytes # (Auto) 1.5 0.4-5.4 10 ^3/uL Monocytes # (Auto) 0.4 0-1.3 10 ^3/uL Eosinophils # (Auto) 0.1 0-0.8 10 ^3/uL Basophils # (Auto) 0 0-0.2 10 ^3/uL Nucleated Red Blood Cells 0.0 % Sodium Level 139 136-145 mmol/L Potassium Level 4.8 3.5-5.1 mmol/L Chloride Level 109 H 98-107 mmol/L Carbon Dioxide Level 19 L 20-31 mmol/L Anion Gap 11 5-15 Blood Urea Nitrogen 21 9-23 mg/dL Creatinine 1.21 H 0.550-1.02 mg/dL Glomerular Filtration Rate Calc 49 >90 mL/min BUN/Creatinine Ratio 17.4 10.0-20.0 Serum Glucose 260 H 74-106 mg/dL Calcium Level 9.8 8.7-10.4 mg/dL Magnesium Level 1.2 L 1.6-2.6 mg/dL Total Bilirubin 0.8 0.2-1.0 mg/dL Aspartate Amino Transferase (AST) 18 13-40 U/L Alanine Aminotransferase (ALT) 33 7-40 U/L Alkaline Phosphatase 77 46-116 U/L Total Protein 6.8 5.7-8.2 g/dL Albumin 4.6 3.2-4.8 g/dL Urine Color Light-yellow Yellow Urine Clarity Clear Clear Urine pH 5.5 5.0-9.0 Urine Specific [place] 1.006 1.001-1.035 Urine Protein Negative Negative Urine Ketones Negative Negative Urine Blood Negative Negative /uL Urine Nitrite Negative Negative Urine Bilirubin Negative Negative Urine Urobilinogen Normal Negative mg/dL Urine Leukocyte Esterase Negative Negative /uL Urine RBC <1 0 - 4 /hpf Urine Microscopic WBC < 1 0-5 /HPF Urine Squamous Epithelial Cells Few <5 /hpf Urine Bacteria None seen None Seen /hpf Urine Glucose 4+ H Normal mg/dL POC Glucose 261 H 70-106 mg/dl [place] [address] Ph: [phone] DIAGNOSTIC IMAGING Diagnostic Imaging Report : [id number] Signed PATIENT: KEVEN PIKE ACCT: [id number] UNIT: [id number] : 1960 LOC: ER ROOM / BED: / AGE / SEX: 64 / F ADM STATUS: REG ER SERVICE 1215 ORDERING PHYSICIAN: BUSHRA WESTBROOK DO PROCEDURE(s): CXRP - CHEST PORTABLE REASON: dizzy ORDER NUMBER(s): [id number], ACCESSION NUMBER(s): [id number] CHEST RADIOGRAPH Indication: dizzy Technique: Single frontal view of the chest was obtained COMPARISON: XY CHEST PORTABLE on DOS: 10/13/22, CHEST XRAY 1 VIEW on DOS: 05/01/21 FINDINGS: Lines and Tubes: None Lungs: Clear Pleura: No effusion. No pneumothorax. Cardiomediastinal contours: Unremarkable Bones: Unremarkable IMPRESSION: No acute disease. ATED BY: ARI PEREZ MD DICTATED DATE/TIME: 08/05/248 SIGNED BY: ARI PEREZ MD SIGNED DATE/TIME: 08/05/241327 CC: [place] [id number] Ph: [phone] DIAGNOSTIC IMAGING Diagnostic Imaging Report : [id number] Signed PATIENT: KEVEN PIKE ACCT: [id number] UNIT: [id number] : 1960 LOC: ER ROOM / BED: / AGE / SEX: 64 / F ADM STATUS: REG ER SERVICE 1405 ORDERING PHYSICIAN: BUSHRA WESTBROOK DO PROCEDURE(s): HWOCT - HEAD WITHOUT CONTRAST REASON: dizzy ORDER NUMBER(s): [id number], ACCESSION NUMBER(s): [id number] EXAM: CT HEAD WITHOUT CONTRAST HISTORY: dizzy COMPARISON: HEAD WITHOUT CONTRAST on DOS: 05/01/21 TECHNIQUE: Axial images of the head were obtained and reformatted in coronal and sagittal planes. All CT scans at this medical facility are performed using dose modulation techniques as appropriate to a performed exam including the following: Automated exposure control was utilized; adjustment of the MA and/or KV according to patient size; and use of iterative reconstruction technique. CT Dose: CTDI volume is 54.55 mGy. Dose-length product is 965.92 mGy*cm FINDINGS: There is no evidence of acute intracranial hemorrhage, mass, mass effect midline shift. There is no hydrocephalus or extra-axial fluid collection. Carter-white matter differentiation is maintained. The visualized paranasal sinuses and mastoid air cells are clear. The calvarium is intact. IMPRESSION: 1. No acute intracranial process. HS:Y ATED BY: NABOR HARRINGTON MD DICTATED DATE/TIME: 08/05/241445 SIGNED BY: NABOR HARRINGTON MD SIGNED DATE/TIME: 08/05/24 1446 CC: [facility] [id number] [place] [id number] Ph: [phone] DIAGNOSTIC IMAGING Diagnostic Imaging Report : [id number] Signed PATIENT: KEVEN PIKE ACCT: [id number] UNIT: [id number] : 1960 LOC: OVERFLOW ROOM / BED: [facility] / A AGE / SEX: 64 / F ADM STATUS: ADM IN SERVICE 5640 ORDERING PHYSICIAN: DOTTIE BECKWITH RESIDENT PROCEDURE(s): CX2CT - CHEST WITHOUT CONTRAST REASON: Pneumonia, history of solitary pulmonary nodule ORDER NUMBER(s): [id number], ACCESSION NUMBER(s): [id number] Procedure: CT CHEST WITHOUT CONTRAST Reason for study/Clinical History: Pneumonia, history of solitary pulmonary nodule Comparison Study: CTA chest 10/13/2022. Exam Date: 08/05/2024 11:44 PM TECHNIQUE: Multidetector CT of the chest was performed from the lung apices to the upper abdomen without the use of intravenous contract. Axial, coronal and sagittal multiplanar reformats were performed. Radiation Dose Information: CT Dose: CTDI volume is mGy. Dose-length product is mGy*cm The dose indicators for CT are the volume Computed Tomography (CT) Dose Index (CTDIvol) and the Dose Length Product (DLP), and are measured in units of mGy and mGy-cm, respectively. These indicators are not patient dose, but values generated from the CT scanner acquisition factors. The report includes radiation exposure data for exposures received during this examination. FINDINGS: Lower neck: Unremarkable. Lungs: No airspace consolidation. Two punctate 2 mm nonspecific nodules noted in the subpleural region in bilateral upper lobes, stable compared to the prior CT chest from October 2022. Pleura: No pleural effusion or pneumothorax. Heart/Vascular Structures: Normal heart size. No pericardial effusion. Unremarkable thoracic aorta. Mediastinum / Lymph Nodes: Small hiatal hernia. Otherwise unremarkable. No evidence of lymphadenopathy. Musculoskeletal: No acute osseous abnormality. Soft tissues: Unremarkable. Visualized Upper abdomen: Unremarkable. IMPRESSION: No acute intrathoracic abnormality. Radiation optimization: All CT scans at this facility use at least one of these dose optimization techniques: automated exposure control mA and/or kV adjustment per patient size (includes targeted exams where dose is matched to clinical indication) or iterative reconstruction. ATED BY: KAVEH ROJO MD DICTATED DATE/TIME: 08/06/2433 SIGNED BY: KAVEH ROJO MD SIGNED DATE/TIME: 08/06/2433 CC: Time of 1ST Reevaluation: 12:48 Reevaluation 1ST: Unchanged Patient Education/Counseling: Diagnosis, Treatment Family Education/Counseling: No Family Present Comments Patient presented with the above HPI.---dizziness/shortness of breath/numbness tingling/shortness of breath---workup was initiated. patient was found with the above mentioned diagnosis. the following medications were ordered: please refer to order lists of meds and tests obtained by myself Dr. Westbrook. Patient ED course and VS have been stabilized. Patient has been reassessed in the ED and remained in a stable condition. Pertinent incidental findings were discussed with the patient and/or family. Patient/family voices understanding and is agreeable with plan. Patient has been observed in the ED adequate length of time to insure improvement/stability. Escalation of care considered: Consideration of escalation to observation or admission Patient was ADMITTED to the medicine team for further evaluation and treatment of their presentation. All the reports of any imaging studies that were ordered by myself were reviewed by myself. Departure 1 Departure Time of Disposition: 14:03 Impression: Primary Impression: Dizziness Additional Impressions: Dyspnea Dehydration Hypomagnesemia Disposition: ADMITTED INPATIENT Admit to: Tele Condition: Guarded Discharged With: Self Critical Care Note Critical Care Time?: No I personally scribed for BUSHRA WESTBROOK DO ([email or web address]) on 08/05/24 at 12:39. Electronically submitted by Mao Mckeon ([email or web address]). I personally scribed for BUSHRA WESTBROOK DO ([email or web address]) on 08/05/24 at 12:41. Electronically submitted by Mao Mckeon ([email or web address]). BUSHRA WESTBROOK DO August 05, 2024 12:39
[2024-08-05 12:48] LABS: Urine Bacteria None Seen /hpf (None Seen)
[2024-08-05 13:02] LABS: Urine Blood Negative /uL (Negative); Urine Clarity Clear (Clear); Urine Color Light-Yellow (Yellow); Urine Protein, UAD Negative (Negative); Urine Specific Gravity 1.006 (1.001-1.035); Urine Squamous Epithelial Cell FEW /hpf (<5); Urine Urobilinogen Normal (Negative); Urine WBC < 1 /HPF (0-5); Urine pH 5.5 (5.0-9.0)
[2024-08-05 13:08] LABS: Basophils # (auto) 0 10 ^3/uL (0-0.2); Basophils % (auto) 0.6 % (0.0-2.0); Eosinophils # (auto) 0.1 10 ^3/uL (0-0.8); Eosinophils % (auto) 1.7 % (0.0-7.0); Hematocrit 43.3 % (36.0-46.0); Hemoglobin 14.5 g/dL (12.2-16.2); Lymphocytes # (auto) 1.5 10 ^3/uL (0.4-5.4); Lymphocytes % (auto) 20.6 % (10.0-50.0); Mean Corpuscular Hemoglobin 28.5 pg (28.0-32.0); Mean Corpuscular Hgb Conc. 33.5 g/dL (32.0-36.0); Mean Corpuscular Volume 84.9 fL (80.0-100.0); Monocytes # (auto) 0.4 10 ^3/uL (0-1.3); Monocytes % (auto) 5.1 % (0.0-12.0); Neutrophils # (auto) 5.3 10 ^3/uL (1.6-8.6); Platelet Count (auto) 226 10^3/uL (140-450); Red Cell Distribution Width 13.5 % (11.8-14.3); White Blood Cell 7.4 10^3/uL (4.4-10.8)
[2024-08-05 13:27] LABS: Alanine Aminotransferase 33 U/L (7-40); Albumin 4.6 g/dL (3.2-4.8); Alkaline Phosphatase 77 U/L (46-116); Anion Gap 11 (5-15); Aspartate Aminotransferase 18 U/L (13-40); BUN/Creatinine Ratio 17.4 (10.0-20.0); Bilirubin, Total 0.8 mg/dL (0.2-1.0); Blood Urea Nitrogen 21 mg/dL (9-23); Calcium 9.8 mg/dL (8.7-10.4); Potassium 4.8 mmol/L (3.5-5.1); Sodium 139 mmol/L (136-145); Total Protein 6.8 g/dL (5.7-8.2)
[2024-08-05 13:30] LABS: Carbon Dioxide 19 mmol/L (20-31); Chloride 109 mmol/L (98-107)
--- NOTE | 2024-08-05 13:30 | DVH ---
CHEST RADIOGRAPH Indication: dizzy Technique: Single frontal view of the chest was obtained COMPARISON: XY CHEST PORTABLE on DOS: 10/13/22, CHEST XRAY 1 VIEW on DOS: 05/01/21 FINDINGS: Lines and Tubes: None Lungs: Clear Pleura: No effusion. No pneumothorax. Cardiomediastinal contours: Unremarkable Bones: Unremarkable IMPRESSION: No acute disease.
[2024-08-05 13:31] LABS: Glucose 260 mg/dL (74-106); Magnesium 1.2 mg/dL (1.6-2.6)
[2024-08-05 14:32] LABS: Base Excess -7.1 mmol/L (-2.0-3.0)
--- NOTE | 2024-08-05 14:48 | DVH ---
EXAM: CT HEAD WITHOUT CONTRAST HISTORY: dizzy COMPARISON: HEAD WITHOUT CONTRAST on DOS: 05/01/21 TECHNIQUE: Axial images of the head were obtained and reformatted in coronal and sagittal planes. All CT scans at this medical facility are performed using dose modulation techniques as appropriate t o a performed exam including the following: Automated exposure control was utilized; adjustment of th e MA and/or KV according to patient size; and use of iterative reconstruction technique. CT Dose: CTDI volume is 54.55 mGy. Dose-length product is 965.92 mGy*cm FINDINGS: There is no evidence of acute intracranial hemorrhage, mass, mass effect midline shift. There is no h ydrocephalus or extra-axial fluid collection. Carter-white matter differentiation is maintained. The visualized paranasal sinuses and mastoid air cells are clear. The calvarium is intact. IMPRESSION: 1. No acute intracranial process. HS:Y
[2024-08-05] MEDS: SODIUM CHLORIDE 0.9% 1,000 ML IV ONE ×2 (15:56)
[2024-08-05 16:00] VITALS: PULSE 76; RESP 18; O2SAT 96
[2024-08-05] MEDS: MAGNESIUM SULFATE 1GM/100ML 100 ML IV ONE (16:06)
[2024-08-05] MEDS: MAGNESIUM OXIDE 400 MG TAB PO ONE (16:06)
--- NOTE | 2024-08-05 22:28 | DVHHPRES ---
History of Present Illness Resident Creating Document: DOTTIE BECKWITH RESIDENT History of Present Illness Ms Aguirre is a 64-year-old female with past medical history of arthritis, diabetes mellitus type 2, CKD 3, peptic ulcer disease, diverticulosis, hypertension, solitary pulmonary nodule who presented to the ER with a chief complaint of dizziness and blackout for the past day and chills for the past week. Patient reports that she was driving [place] this [place] when she experienced blackout, dizziness, lightheadedness and preceded by palpitations and feeling of cold. She she felt like she was going to pass out and therefore stopped the nearby gas station and called her brother. She has been having uncontrolled blood pressure for the past 4 months, ranging to 160 systolic. Previously it was well controlled. Patient recently goals her antidiabetic medication glyburide due to insurance issues and increase her dosage of metformin from 500 to a 1000 mg b.i.d. her glucose morning was 300 and has been uncontrolled for the past 2 weeks. Patient reports chronic cough for the past 2 months with whitish phlegm, says that she has been gaining weight, reports chills but no fever. On arrival to the ER, patient was experiencing low-grade fever 99 F, tachycardic at 109., blood pressure 178/86, on room air past medical history: diabetes mellitus type 2, CKD 3, peptic ulcer disease, diverticulosis, hypertension, solitary pulmonary nodule Home medication: Losartan 100 mg, Norvasc 2.5 mg, Lipitor 40 mg, Protonix, [place] 10/325, metformin 1000 mg b.i.d. 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 Smoke: Quit ALCOHOL: none Drugs: None, Marijuana Lives: with Family Review of Systems Constitutional: Yes: Chills, Weakness Eyes: Vision change Respiratory: Cough, Shortness of breath Neurological: Numbness Allergies: Coded Allergies: NO KNOWN ALLERGIES (Unverified , 09/22/22) Exam Vital Signs Vital Signs Date Time Temp Pulse Resp B/P (MAP) Pulse Ox O2 Delivery O2 Flow Rate FiO2 08/05/24 19:54 97.6 73 20 153/77 (102) 98 97.6 08/05/24 16:00 Room Air* 0 21 Exam Obese female patient sitting comfortably in the ER in the chair, no acute distress General: Obese, afebrile, palor, mucosae are moist Cardiovascular: Escape beats, Regular S1 and S2. No murmurs, gallops or rubs. No JVD elevation. 2+ bilateral pitting edema Respiratory: Normal B/L air entry on room air. Clear lung sounds on auscultation Abdomen: Soft, suprapubic tenderness, nondistended, normoactive bowel sounds, no rebound tenderness, no organomegaly, no masses. Right-sided costovertebral tenderness Genitourinary: Deferred MSK/skin: Mobilizes 4 limbs. Skin is dry and warm Neurological: No motor, no sensitive deficits, normal speech. Pupils are isocoric and reactive. Psych/Mental Status: A/Ox3 Labs/Xrays Labs Test 08/05/24 20:11 08/05/24 16:02 08/05/24 14:23 08/05/24 14:16 Range/Units POC Glucose 159 H 70-106 mg/dl Troponin I High Sensitivity 4 </=34 ng/L Blood Gas Specimen Type Arterial Blood Gas Sample Site Right radial Blood Gas Patient Temperature 37.0 Arterial Blood Date Drawn [id number] Arterial Blood pH 7.412 7.350-7.450 Arterial Blood Partial Pressure CO2 25.1 L 32.0-45.0 mmHg Arterial Blood Partial Pressure O2 84.8 83.0-108.0 mmHg Arterial Blood HCO3 15.6 L 21.0-28.0 mmol/L Arterial Blood Oxygen Saturation 97.0 94.0-98.0 % Arterial Blood Base Excess -7.1 L -2.0-3.0 mmol/L Arterial Blood Oxyhemoglobin 96.3 94.0-98.0 % Arterial Blood Carboxyhemoglobin 0.4 L 0.5-1.5 % Arterial Blood Methemoglobin 0.3 0.0-1.5 % Gopal Test Yes Blood Gas Total Hemoglobin 14.30 12.0-16.0 g/dL Blood Gas Modality Room air FiO2 % 21.0 Lactic Acid Level 1.4 0.4-2.0 mmol/L Test 08/05/24 13:00 08/05/24 12:33 Range/Units White Blood Count 7.4 4.4-10.8 10^3/uL Red Blood Count 5.10 4.0-5.20 10^6/uL Hemoglobin 14.5 12.2-16.2 g/dL Hematocrit 43.3 36.0-46.0 % Mean Corpuscular Volume 84.9 80.0-100.0 fL Mean Corpuscular Hemoglobin 28.5 28.0-32.0 pg Mean Corpuscular Hemoglobin Concent 33.5 32.0-36.0 g/dL Red Cell Distribution Width 13.5 11.8-14.3 % Platelet Count 226 140-450 10^3/uL Mean Platelet Volume 8.6 6.9-10.8 fL Neutrophils (%) (Auto) 72.0 37.0-80.0 % Lymphocytes (%) (Auto) 20.6 10.0-50.0 % Monocytes (%) (Auto) 5.1 0.0-12.0 % Eosinophils (%) (Auto) 1.7 0.0-7.0 % Basophils (%) (Auto) 0.6 0.0-2.0 % Neutrophils # (Auto) 5.3 1.6-8.6 10 ^3/uL Lymphocytes # (Auto) 1.5 0.4-5.4 10 ^3/uL Monocytes # (Auto) 0.4 0-1.3 10 ^3/uL Eosinophils # (Auto) 0.1 0-0.8 10 ^3/uL Basophils # (Auto) 0 0-0.2 10 ^3/uL Nucleated Red Blood Cells 0.0 % Sodium Level 139 136-145 mmol/L Potassium Level 4.8 3.5-5.1 mmol/L Chloride Level 109 H 98-107 mmol/L Carbon Dioxide Level 19 L 20-31 mmol/L Anion Gap 11 5-15 Blood Urea Nitrogen 21 9-23 mg/dL Creatinine 1.21 H 0.550-1.02 mg/dL Glomerular Filtration Rate Calc 49 >90 mL/min BUN/Creatinine Ratio 17.4 10.0-20.0 Serum Glucose 260 H 74-106 mg/dL Calcium Level 9.8 8.7-10.4 mg/dL Magnesium Level 1.2 L 1.6-2.6 mg/dL Total Bilirubin 0.8 0.2-1.0 mg/dL Aspartate Amino Transferase (AST) 18 13-40 U/L Alanine Aminotransferase (ALT) 33 7-40 U/L Alkaline Phosphatase 77 46-116 U/L Total Protein 6.8 5.7-8.2 g/dL Albumin 4.6 3.2-4.8 g/dL Urine Color Light-yellow Yellow Urine Clarity Clear Clear Urine pH 5.5 5.0-9.0 Urine Specific [place] 1.006 1.001-1.035 Urine Protein Negative Negative Urine Ketones Negative Negative Urine Blood Negative Negative /uL Urine Nitrite Negative Negative Urine Bilirubin Negative Negative Urine Urobilinogen Normal Negative mg/dL Urine Leukocyte Esterase Negative Negative /uL Urine RBC <1 0 - 4 /hpf Urine Microscopic WBC < 1 0-5 /HPF Urine Squamous Epithelial Cells Few <5 /hpf Urine Bacteria None seen None Seen /hpf Urine Glucose 4+ H Normal mg/dL Assessment/Plan Assessment/Plan Dizziness rule out stroke Sepsis due to pneumonia, possibly Gram-negative Uncontrolled diabetes mellitus-A1c 10 Hypertensive crisis Hypertensive heart disease Respiratory alkalosis Lactic acidosis-resolved Hypomagnesemia CKD stage 3 History of diverticulosis History of peptic ulcer disease History of solitary pulmonary nodule Plan: Head CT unremarkable, EKG shows NSR, follow up with carotid Doppler and orthostatic vitals and echocardiogram IV ceftriaxone and azithromycin, IV fluid Follow up with MRSA nares, COVID and flu, sputum culture and blood culture Follow up with CT chest given pneumonia and history of nodules Follow up with kidney ultrasound Pantoprazole 40 mg daily Continue home medication losartan 100 mg Norvasc 2.5 mg daily Continue Lipitor 40 mg 2 g IV magnesium supplemented Diabetic diet Plan discussed with all questions have been answered Goals of care discussed for more than 20 minutes, full code status Case discussed with Dr. Amaya Plan discussed with: Patient Date of Service: August 05, 2024 Billing Provider: HAILEY AMAYA MD Common Visit Codes: [id number] INP/OBS CARE (HIGH) DOTTIE BECKWITH RESIDENT August 05, 2024 22:28
[2024-08-06] VITALS (10 sets, daily range): BP systolic 133–166; BP diastolic 67–93; PULSE 67–86; RESP 16–18; TEMP 97.6–98.5; O2SAT 96–98
[2024-08-06] MEDS: ATORVASTATIN 20 MG TAB PO ONE (00:14)
[2024-08-06] MEDS: LOSARTAN POTASSIUM 50 MG TAB PO ONE (00:15)
[2024-08-06] MEDS: amLODIPine BESYLATE 5 MG TAB PO ONE ×2 (00:15→13:15)
[2024-08-06] MEDS: cefTRIAXone 1GM/50ML D5W 50 ML IV ONE (00:16)
--- NOTE | 2024-08-06 00:36 | DVH ---
Procedure: CT CHEST WITHOUT CONTRAST Reason for study/Clinical History: Pneumonia, history of solitary pulmonary nodule Comparison Study: CTA chest 10/13/2022. Exam Date: 08/05/2024 11:44 PM TECHNIQUE: Multidetector CT of the chest was performed from the lung apices to the upper abdomen with out the use of intravenous contract. Axial, coronal and sagittal multiplanar reformats were performed . Radiation Dose Information: CT Dose: CTDI volume is mGy. Dose-length product is mGy*cm The dose indicators for CT are the volume Computed Tomography (CT) Dose Index (CTDIvol) and the Dose Length Product (DLP), and are measured in units of mGy and mGy-cm, respectively. These indicators are not patient dose, but values generated from the CT scanner acquisition factors. The report includes radiation exposure data for exposures received during this examination. FINDINGS: Lower neck: Unremarkable. Lungs: No airspace consolidation. Two punctate 2 mm nonspecific nodules noted in the subpleural mukesh on in bilateral upper lobes, stable compared to the prior CT chest from October 2022. Pleura: No pleural effusion or pneumothorax. Heart/Vascular Structures: Normal heart size. No pericardial effusion. Unremarkable thoracic aorta. Mediastinum / Lymph Nodes: Small hiatal hernia. Otherwise unremarkable. No evidence of lymphadenopath y. Musculoskeletal: No acute osseous abnormality. Soft tissues: Unremarkable. Visualized Upper abdomen: Unremarkable. IMPRESSION: No acute intrathoracic abnormality. Radiation optimization: All CT scans at this facility use at least one of these dose optimization cristian hniques: automated exposure control mA and/or kV adjustment per patient size (includes targeted exam s where dose is matched to clinical indication) or iterative reconstruction.
[2024-08-06 01:00] LABS: Rapid Influenza A Negative (Negative); Rapid Influenza B Negative (Negative)
[2024-08-06 01:01] LABS: COVID19 ANTIGEN SOFIA FIA NEGATIVE (NEGATIVE)
[2024-08-06] MEDS: SODIUM CHLORIDE 0.9% 1,000 ML IV ONE (01:59)
[2024-08-06] MEDS ORDERED: PANT40TA2 PO (02:15)
[2024-08-06] MEDS ORDERED: AML5T PO (02:15)
[2024-08-06] MEDS ORDERED: ATOR40TA52 PO (02:15)
[2024-08-06] MEDS ORDERED: LOSA-534 PO (02:15)
[2024-08-06] MEDS ORDERED: HYDROcodone-ACET 5/325MG TAB PO PRN (02:30)
[2024-08-06] MEDS: AZITHROMYCIN 500MG/ 250ML 250 ML IV ONE (02:33)
[2024-08-06] MEDS: MAGNESIUM SULFATE 1GM/100ML 100 ML IV SCH (04:42)
--- NOTE | 2024-08-06 05:00 | ECG ---
[facility] Test Date: 2024-08-05 Test Time: 22:56:15 Pat Name: KEVEN PIKE Department: ED Room: 0297T Gender: F Supervisor Production Department: HANG : 1960 Requested By: BUSHRA WESTBROOK Order Number: [id number] Reading MD: Solomon Palmer Measurements Intervals [place] Rate: 75 P: 38 NV: 159 QRS: 3 QRSD: 104 T: 5 QT: 386 QTc: 432 Interpretive Statements Sinus rhythm Borderline repolarization abnormality Electronically Signed On 08-11-2024 20:25:53 PDT by Solomon Palmer Please click the below link to view image of tracing.
[2024-08-06 05:42] LABS: Basophils # (auto) 0.1 10 ^3/uL (0-0.2); Basophils % (auto) 0.8 % (0.0-2.0); Eosinophils # (auto) 0.2 10 ^3/uL (0-0.8); Eosinophils % (auto) 2.8 % (0.0-7.0); Hematocrit 38.2 % (36.0-46.0); Hemoglobin 12.7 g/dL (12.2-16.2); Lymphocytes # (auto) 1.5 10 ^3/uL (0.4-5.4); Lymphocytes % (auto) 21.2 % (10.0-50.0); Mean Corpuscular Hemoglobin 27.8 pg (28.0-32.0); Mean Corpuscular Hgb Conc. 33.2 g/dL (32.0-36.0); Mean Corpuscular Volume 83.7 fL (80.0-100.0); Monocytes # (auto) 0.5 10 ^3/uL (0-1.3); Monocytes % (auto) 6.5 % (0.0-12.0); Neutrophils # (auto) 4.9 10 ^3/uL (1.6-8.6); Neutrophils % (auto) 68.7 % (37.0-80.0); Nucleated Red Blood Cells % 0.3 %; Platelet Count (auto) 170 10^3/uL (140-450); Red Blood Cells 4.57 10^6/uL (4.0-5.20); Red Cell Distribution Width 13.6 % (11.8-14.3); White Blood Cell 7.2 10^3/uL (4.4-10.8)
[2024-08-06 06:00] LABS: INR 1.03 (0.9-1.15); Partial Thromboplastin Time 23.2 SEC (24.5-34.5); Prothrombin Time 10.9 sec (9.3-11.8)
[2024-08-06 06:04] LABS: Alanine Aminotransferase 33 U/L (7-40); Alkaline Phosphatase 67 U/L (46-116); Anion Gap 10 (5-15); Aspartate Aminotransferase 21 U/L (13-40); BUN/Creatinine Ratio 16.2 (10.0-20.0); Blood Urea Nitrogen 21 mg/dL (9-23); Calcium 9.3 mg/dL (8.7-10.4); Carbon Dioxide 20 mmol/L (20-31); Potassium 4.6 mmol/L (3.5-5.1); Sodium 140 mmol/L (136-145); Total Protein 6.2 g/dL (5.7-8.2)
[2024-08-06 06:14] LABS: Chloride 110 mmol/L (98-107); Glucose 321 mg/dL (74-106)
--- NOTE | 2024-08-06 08:48 | DVH ---
CLINICAL INFORMATION: Chronic kidney disease. TECHNIQUE: Grayscale sonographic imaging of the kidneys and bladder was performed, assisted by color Doppler technique. COMPARISON: None FINDINGS: The right kidney measures 10.3 cm in length. No hydronephrosis. Unremarkable cortical th ickness and echogenicity. The left kidney measures 9.1 cm in length. No hydronephrosis. Unremarkable cortical thickness and e chogenicity. Prevoid bladder volume measured 117 mL. No bladder wall thickening or mass visualized. IMPRESSION: 1. No hydronephrosis. 2. Otherwise unremarkable sonographic appearance of the kidneys and bladder.
[2024-08-06] MEDS: cefTRIAXone 1GM/50ML D5W 50 ML IV SCH (09:00)
[2024-08-06] MEDS: LOSARTAN POTASSIUM 50 MG TAB PO SCH (10:21)
[2024-08-06] MEDS: AZITHROMYCIN 500MG/ 250ML 250 ML IV SCH (10:21)
[2024-08-06] MEDS: PANTOPRAZOLE 40 MG/10 ML VIAL INJ IV SCH (10:21)
[2024-08-06] MEDS: ENOXAPARIN SOD 40 MG/0.4 ML SYRINGE SC SCH (10:22)
[2024-08-06] MEDS: amLODIPine BESYLATE 5 MG TAB PO SCH (10:22)
[2024-08-06] MEDS: ACETAMINOPHEN 500 MG TAB or CAP PO PRN (10:36)
--- NOTE | 2024-08-06 12:56 | DVH ---
EXAM: US Duplex Bilateral Extracranial Arteries CLINICAL INDICATION: Dizziness TECHNIQUE: Real-time duplex ultrasound scan of the extracranial arteries integrating B-mode two-dime nsional vascular structure, Doppler spectral analysis and color flow Doppler imaging. CONTRAST: COMPARISON: None FINDINGS: RIGHT COMMON CAROTID ARTERY: Unremarkable. No occlusion or significant stenosis on color flow and spectral Doppler imaging. Peak systolic velocity in the right common carotid artery (CCA) is 75 cm/s . RIGHT INTERNAL CAROTID ARTERY: Unremarkable. No occlusion or significant stenosis on color flow an d spectral Doppler imaging. Peak systolic velocity in the right internal carotid artery (ICA) is 102 cm/s. RIGHT EXTERNAL CAROTID ARTERY: Unremarkable. No occlusion or significant stenosis on color flow an d spectral Doppler imaging. RIGHT VERTEBRAL ARTERY: Unremarkable. Antegrade flow. RIGHT ICA/CCA RATIO: Unremarkable. The ICA/CCA peak systolic velocity ratio is 1.4 on the right. LEFT COMMON CAROTID ARTERY: Unremarkable. No occlusion or significant stenosis on color flow and s pectral Doppler imaging. Peak systolic velocity in the left common carotid artery (CCA) is 81 cm/s. LEFT INTERNAL CAROTID ARTERY: Unremarkable. No occlusion or significant stenosis on color flow and spectral Doppler imaging. Peak systolic velocity in the left internal carotid artery (ICA) is 109 c m/s. LEFT EXTERNAL CAROTID ARTERY: Unremarkable. No occlusion or significant stenosis on color flow and spectral Doppler imaging. LEFT VERTEBRAL ARTERY: Unremarkable. Antegrade flow. LEFT ICA/CCA RATIO: Unremarkable. The ICA/CCA peak systolic velocity ratio is 1.4 on the left. LYMPH NODES: Unremarkable. No lymphadenopathy. OTHER FINDINGS: . . CAROTID STENOSIS REFERENCE USING IAC CRITERIA: Mild - <50% stenosis. ICA PSV is less than 180 cm/s and plaque or intimal thickening is visible. Moderate - 50-69% stenosis. ICA PSV is 180 to 230 cm/s and plaque is visible. Severe - 70-94% stenosis. ICA PSV is more than 230 cm/s and visible plaque with lumen narrowing is s een. Near occlusion - 95-99% stenosis. ICA PSV is variable and significant plaque with luminal narrowing is seen. Occluded - 100% stenosis. No flow identified. IMPRESSION: No acute findings in the arteries of the neck.
--- NOTE | 2024-08-06 13:09 | DVHPN2 ---
Reviewed: Care Plan, H&P, Labs, Medications, Previous Orders, Radiology Changes from previous H/P or p: No Changes Eyes: Vision change Respiratory: Cough, Shortness of breath Objective Vitals Vital Signs Date Time Temp Pulse Resp B/P (MAP) Pulse Ox O2 Delivery O2 Flow Rate FiO2 08/06/24 10:22 166/93 08/06/24 08:50 98.4 82 17 97 98.4 08/06/24 08:20 Room Air* 0 21 Intake/Output Intake and Output 08/06/24 07:00 Intake Total 450 ml Balance 450 ml Intake Oral 50 ml IV Total 400 ml # Voids 2 Medications Current Medications Medications Dose Ordered Sig/Natasha Route Start Time Stop Time Status Last Admin Dose Admin Ceftriaxone Sodium 50 ml @ 100 mls/hr DAILY@09 IV 08/06/24 09:00 08/06/24 09:00 100 MLS/HR Azithromycin 250 ml @ 125 mls/hr DAILY IV 08/06/24 10:00 08/06/24 10:21 125 MLS/HR Pantoprazole Sodium 40 mg DAILY IV 08/06/24 10:00 08/06/24 10:21 40 MG Atorvastatin Calcium 40 mg HS PO 08/06/24 22:00 Losartan Potassium 100 mg DAILY PO 08/06/24 10:00 08/06/24 10:21 100 MG Amlodipine Besylate 2.5 mg DAILY PO 08/06/24 10:00 08/06/24 10:22 2.5 MG Enoxaparin Sodium 40 mg DAILY SC 08/06/24 10:00 08/06/24 10:22 40 MG Acetaminophen/ Hydrocodone Bitart 1 tab Q4HPRN PRN PO 08/06/24 02:30 Acetaminophen 500 mg Q4HPRN PRN PO 08/06/24 02:30 08/06/24 10:36 500 MG Laboratory Results Laboratory Tests 08/06/24 05:27 Chemistry Test 08/05/24 23:58 08/06/24 05:27 Magnesium Level 1.5 mg/dL (1.6-2.6) L Albumin 4.0 g/dL (3.2-4.8) Calcium Level 9.3 mg/dL (8.7-10.4) Total Protein 6.2 g/dL (5.7-8.2) Coagulation Test 08/06/24 05:27 Prothrombin Time 10.9 sec (9.3-11.8) Prothrombin Time INR 1.03 (0.9-1.15) Activated Partial Thromboplast Time 23.2 SEC (24.5-34.5) L LFT Test 08/06/24 05:27 Alanine Aminotransferase (ALT) 33 U/L (7-40) Alkaline Phosphatase 67 U/L (46-116) Aspartate Amino Transferase (AST) 21 U/L (13-40) Total Bilirubin 1.0 mg/dL (0.2-1.0) HgA1c, TSH Test 08/06/24 05:27 Hemoglobin A1c 10.3 % A1C (<5.7) H Thyroid Stimulating Hormone (TSH) 2.83 uIU/mL (0.55-4.78) Urinalysis Test 08/05/24 12:33 Urine Color Light-yellow (Yellow) Urine Clarity Clear (Clear) Urine pH 5.5 (5.0-9.0) Urine Specific [place] 1.006 (1.001-1.035) Urine Protein Negative (Negative) Urine Ketones Negative (Negative) Urine Blood Negative /uL (Negative) Urine Nitrite Negative (Negative) Urine Bilirubin Negative (Negative) Urine Urobilinogen Normal mg/dL (Negative) Urine Leukocyte Esterase Negative /uL (Negative) Urine RBC <1 /hpf (0 - 4) Urine Microscopic WBC < 1 /HPF (0-5) Urine Squamous Epithelial Cells Few /hpf (<5) Urine Bacteria None seen /hpf (None Seen) Urine Glucose 4+ mg/dL (Normal) H Blood Gas Results Test 08/05/24 14:23 Arterial Blood pH 7.412 (7.350-7.450) FiO2 % 21.0 Labs and/or images reviewed: Labs reviewed by me, Image(s) reviewed by me Assessment/Plan Assessment/Plan Dizziness and near-syncope unknown etiology : Cardiology consult, Neurology consult Chest x-ray negative, CT head negative, chest CT negative Kidney ultrasound negative, flu test negative ,COVID test negative UTI ruled out Ultrasound result pending, echocardiogram result pending Accelerated hypertension blood pressure systolic 170: Amlodipine losartan Possible Community-acquired pneumonia: Rocephin azithromycin Uncontrolled diabetes with a A1c 10.3: Insulin sliding scale Acute Lactic acidosis Peptic ulcer disease Diverticulosis Solitary pulmonary nodule Time Spent 70 minutes Advanced care planning time 20 minutes Patient is full code Plan discussed with: Patient Date of Service: August 06, 2024 Billing Provider: HINA OTTO MD Common Visit Codes: [id number] CARE 30-74 MIN HINA OTTO MD August 06, 2024 13:09
--- NOTE | 2024-08-06 14:44 | DVHINCON2 ---
Date Seen: August 06, [address] Meron Wellington Reason for Consultation Presyncope to rule out cardiac etiology History of Present Illness This 64-year-old female presents in the ED with a chief complaint of presyncope. The patient reports as she was driving down the heel started having dizziness, facial and tongue numbness, and feels like she was going to pass out. In the emergency department, the patient undergone a 12 lead ECG revealed sinus rhythm. Upon assessment, the patient is alert and oriented denies syncope, diaphoresis, chest pain, shortness of breath, or dyspnea. The patient denies history of CAD, mi or CHF. The patient reports that she was at this facility for chest pain and undergone a nuclear test with normal findings in October 2022. The significant past medical history of hypertension, hyperlipidemia, diabetes, COPD, CKD, emphysema, obesity, and UTIs. Past Medical History As stated in HPI Past Surgical History Cholecystectomy Family History: Diabetes mellitus G8 MOTHER G8 FATHER Hypercholesterolemia G8 MOTHER G8 FATHER Hypertension G8 MOTHER G8 FATHER Family History Reviewed, non-contributory to the management of this case. Social History The patient lives at home, denies smoking, alcohol or illicit drugs abuse. Allergies: Coded Allergies: NO KNOWN ALLERGIES (Unverified , 09/22/22) Home Meds Reported Medications Atorvastatin Calcium (ATORVASTATIN CALCIUM) 40 Mg Tab, 1 TAB PO DAILY 08/06/24 Amlodipine Besylate (NORVASC TABLET) 5 Mg Tb, 2.5 MG PO DAILY, TAB 08/06/24 Pantoprazole Sodium Sesquihydr (Protonix) 40 Mg Tab, 20 MG PO DAILY, #30 TAB 08/06/24 Losartan Potassium (Losartan Potassium) 50 Mg Tab, 100 TAB PO DAILY 08/06/24 Hydrocodone-Acetaminophen (Hydrocodone/Acetaminophen 10-325 mg) 1 Tab Tab, 1 TAB PO PRN, TAB 12/02/23 Metformin Hydrochloride (Metformin Hcl) 500 Mg Tab, 1000 MG PO BID, TAB 07/01/23 Current Medications Current Medications Medications (Trade) Dose Ordered Sig/Natasha Route PRN Reason Start Time Stop Time Status Last Admin Ceftriaxone Sodium 50 ml @ 100 mls/hr DAILY@09 IV 08/06/24 09:00 08/06/24 09:00 Azithromycin 250 ml @ 125 mls/hr DAILY IV 08/06/24 10:00 08/06/24 10:21 Pantoprazole Sodium (Protonix) 40 mg DAILY IV 08/06/24 10:00 08/06/24 10:21 Atorvastatin Calcium (Lipitor) 40 mg HS PO 08/06/24 22:00 Losartan Potassium (Cozaar Tablet) 100 mg DAILY PO 08/06/24 10:00 08/06/24 10:21 Amlodipine Besylate (Norvasc Tablet) 2.5 mg DAILY PO 08/06/24 10:00 08/06/24 13:10 DC 08/06/24 10:22 Enoxaparin Sodium (Lovenox) 40 mg DAILY SC 08/06/24 10:00 08/06/24 10:22 Magnesium Sulfate/ Dextrose 100 ml @ 100 mls/hr Q1HR IV 08/06/24 03:00 08/06/24 04:59 DC 08/06/24 05:43 Acetaminophen/ Hydrocodone Bitart ([place] 5/325MG Tab) 1 tab Q4HPRN PRN PO MODERATE PAIN (4-6 PAIN SCALE) 08/06/24 02:30 Acetaminophen (Tylenol Tablet Or Capsule) 500 mg Q4HPRN PRN PO MILD PAIN (1-3 PAIN SCALE) 08/06/24 02:30 08/06/24 10:36 Amlodipine Besylate (Norvasc Tablet) 10 mg DAILY PO 08/07/24 10:00 Review of Systems Constitutional: No symptom reported Ears, Nose, & Throat: No symptom reported Eyes: No symptom reported Neurological: No symptoms reported Pulmonary/Respiratory: No symptom reported Cardiovascular: No symptom reported Gastrointestinal: No symptom reported Genitourinary: No symptom reported Musculoskeletal: No symptom reported Skin: No symptom reported Psychiatric: No symptom reported Endocrine: No symptom reported Hematologic/Lymphatic: No symptom reported Vital Signs Vital Signs Date Time Temp Pulse Resp B/P (MAP) Pulse Ox O2 Delivery O2 Flow Rate FiO2 08/06/24 13:15 155/90 08/06/24 12:40 97.6 67 16 98 97.6 08/06/24 08:20 Room Air* 0 21 Physical Exam INITIAL VITAL SIGNS: Reviewed by me GENERAL: Alert and interactive. No acute distress. HEAD: Head is normocephalic and atraumatic. EYES: EOMI, PERRL. No scleral icterus. No conjunctival injection. ENT: Moist mucous membranes. NECK: Supple, No masses, Full range of motion. RESPIRATORY: No tachypnea. Clear breath sounds bilaterally. No wheezing, rales, rhonchi. CV: Regular rate and rhythm. No murmurs, rubs, or gallops. GI/: Active bowel sounds, soft, nondistended, nontender. No guarding. No rebound. No masses. No CVA tenderness. INTEGUMENTARY: Warm and dry. No obvious rashes. NEUROLOGIC: Alert and oriented. Face is symmetric. Speech is normal. Moves all extremities equally. Labs/Diagnostic Data Labs Test 08/06/24 13:40 08/06/24 05:27 08/06/24 00:10 08/05/24 23:58 Range/Units D-Dimer, Quantitative 0.59 H 0.0-0.49 mg/L FEU White Blood Count 7.2 4.4-10.8 10^3/uL Red Blood Count 4.57 4.0-5.20 10^6/uL Hemoglobin 12.7 12.2-16.2 g/dL Hematocrit 38.2 # 36.0-46.0 % Mean Corpuscular Volume 83.7 80.0-100.0 fL Mean Corpuscular Hemoglobin 27.8 L 28.0-32.0 pg Mean Corpuscular Hemoglobin Concent 33.2 32.0-36.0 g/dL Red Cell Distribution Width 13.6 11.8-14.3 % Platelet Count 170 140-450 10^3/uL Mean Platelet Volume 8.7 6.9-10.8 fL Neutrophils (%) (Auto) 68.7 37.0-80.0 % Lymphocytes (%) (Auto) 21.2 10.0-50.0 % Monocytes (%) (Auto) 6.5 0.0-12.0 % Eosinophils (%) (Auto) 2.8 0.0-7.0 % Basophils (%) (Auto) 0.8 0.0-2.0 % Neutrophils # (Auto) 4.9 1.6-8.6 10 ^3/uL Lymphocytes # (Auto) 1.5 0.4-5.4 10 ^3/uL Monocytes # (Auto) 0.5 0-1.3 10 ^3/uL Eosinophils # (Auto) 0.2 0-0.8 10 ^3/uL Basophils # (Auto) 0.1 0-0.2 10 ^3/uL Nucleated Red Blood Cells 0.3 % Prothrombin Time 10.9 9.3-11.8 sec Prothrombin Time INR 1.03 0.9-1.15 Activated Partial Thromboplast Time 23.2 L 24.5-34.5 SEC Sodium Level 140 136-145 mmol/L Potassium Level 4.6 3.5-5.1 mmol/L Chloride Level 110 H 98-107 mmol/L Carbon Dioxide Level 20 20-31 mmol/L Anion Gap 10 5-15 Blood Urea Nitrogen 21 9-23 mg/dL Creatinine 1.30 H 0.550-1.02 mg/dL Glomerular Filtration Rate Calc 45 >90 mL/min BUN/Creatinine Ratio 16.2 10.0-20.0 Serum Glucose 321 H 74-106 mg/dL Hemoglobin A1c 10.3 H <5.7 % A1C Calcium Level 9.3 8.7-10.4 mg/dL Total Bilirubin 1.0 0.2-1.0 mg/dL Aspartate Amino Transferase (AST) 21 13-40 U/L Alanine Aminotransferase (ALT) 33 7-40 U/L Alkaline Phosphatase 67 46-116 U/L Creatine Kinase 62 34-145 U/L Total Protein 6.2 5.7-8.2 g/dL Albumin 4.0 3.2-4.8 g/dL Thyroid Stimulating Hormone (TSH) 2.83 0.55-4.78 uIU/mL Influenza Type A Antigen Negative Negative Influenza Type B Antigen Negative Negative SARS-CoV-2 Antigen (Rapid) Negative NEGATIVE Magnesium Level 1.5 L 1.6-2.6 mg/dL Test 08/05/24 20:11 08/05/24 16:02 08/05/24 14:23 08/05/24 14:16 Range/Units POC Glucose 159 H 70-106 mg/dl Troponin I High Sensitivity 4 </=34 ng/L Blood Gas Specimen Type Arterial Blood Gas Sample Site Right radial Blood Gas Patient Temperature 37.0 Arterial Blood Date Drawn [id number] Arterial Blood pH 7.412 7.350-7.450 Arterial Blood Partial Pressure CO2 25.1 L 32.0-45.0 mmHg Arterial Blood Partial Pressure O2 84.8 83.0-108.0 mmHg Arterial Blood HCO3 15.6 L 21.0-28.0 mmol/L Arterial Blood Oxygen Saturation 97.0 94.0-98.0 % Arterial Blood Base Excess -7.1 L -2.0-3.0 mmol/L Arterial Blood Oxyhemoglobin 96.3 94.0-98.0 % Arterial Blood Carboxyhemoglobin 0.4 L 0.5-1.5 % Arterial Blood Methemoglobin 0.3 0.0-1.5 % Gopal Test Yes Blood Gas Total Hemoglobin 14.30 12.0-16.0 g/dL Blood Gas Modality Room air FiO2 % 21.0 Lactic Acid Level 1.4 0.4-2.0 mmol/L Test 08/05/24 12:33 Range/Units Urine Color Light-yellow Yellow Urine Clarity Clear Clear Urine pH 5.5 5.0-9.0 Urine Specific [place] 1.006 1.001-1.035 Urine Protein Negative Negative Urine Ketones Negative Negative Urine Blood Negative Negative /uL Urine Nitrite Negative Negative Urine Bilirubin Negative Negative Urine Urobilinogen Normal Negative mg/dL Urine Leukocyte Esterase Negative Negative /uL Urine RBC <1 0 - 4 /hpf Urine Microscopic WBC < 1 0-5 /HPF Urine Squamous Epithelial Cells Few <5 /hpf Urine Bacteria None seen None Seen /hpf Urine Glucose 4+ H Normal mg/dL Microbiology Date/Time Source Procedure Growth Status 08/06/24 05:08 Nose MRSA Screen - Final Complete PROCEDURE(s): CXRP - CHEST PORTABLE REASON: dizzy ORDER NUMBER(s): [id number], ACCESSION NUMBER(s): [id number] CHEST RADIOGRAPH Indication: dizzy Technique: Single frontal view of the chest was obtained COMPARISON: XY CHEST PORTABLE on DOS: 10/13/22, CHEST XRAY 1 VIEW on DOS: 05/01/21 FINDINGS: Lines and Tubes: None Lungs: Clear Pleura: No effusion. No pneumothorax. Cardiomediastinal contours: Unremarkable Bones: Unremarkable IMPRESSION: No acute disease Assessment Presyncope to rule out cardiac etiology Carotid stenosis, ruled out Accelerated hypertension Uncontrolled diabetes with A1c 10.3 Hypertension Hyperlipidemia CKD stage 3 Obesity Plan/Recommendation (Dr. Mao ): * Transthoracic echocardiogram to evaluate cardiac function. Previous echo 09/2022 reveals EF 65% * Aspirin, statins * Aggressive BP control-- Continue with antihypertensive medication * Orthostatic vital signs- negative for orthostatic * Monitor electrolytes and replete * Insulin sliding scale and long-acting * Counseled on lifestyle modification with diet and weight loss Given unremarkable EKG and negative for carotid stenosis, doubt presyncope is due to cardiac etiology. Recommends to aggressive treatment of diabetes and neurology consult. In the event of unremarkable echocardiogram, we will sign off. Please reconsult if deemed necessary This medical document was created using an electronic medical record system with voice recognition software and computerized dictation system. Although this document has been carefully reviewed, there might still be some phonetic and typographical errors. Occasional wrong-word or ``sound-alike substitutions may have occurred due to the inherent limitations of voice recognition software. These areas are purely typographical due to imperfections of the software programs and do not reflect any compromise in the patient's medical care. Please read the chart carefully and recognize, using context, where these substitutions have occurred. Plan discussed with: Patient Plan discussed with: Patient NYHA Physical activity limitations: NA Date of Service: August 06, 2024 Billing Provider: MARTHA MAO MD Cardiology Common Codes: NOT BILLABLE Cardiology Consultation Codes: [id number] CONSULT <45MIN SHEILA CARLOS SENIOR PRODUCT DEVELOPMENT MANAGER August 06, 2024 14:44
[2024-08-06] MEDS ORDERED: DEXTROSE (50%) 50ML SYRG IV PRN (14:45)
[2024-08-06] MEDS: ASPirin 81 mg TAB PO ONE (14:47)
[2024-08-06 15:16] LABS: LDL Cholesterol 61 mg/dL (< 100)
[2024-08-06 15:17] LABS: Cholesterol 120 mg/dL (< 200)
[2024-08-06 15:20] LABS: HDL Cholesterol 36 mg/dL (40-59); Triglycerides 151 mg/dL (< 150)
[2024-08-06] MEDS: ACCU-CHEK COMFORT CURVE STRIP VI SCH (17:13)
[2024-08-06] MEDS: InsuLIN REG 1unit/0.01ml Soln (100units/ml) SC SCH (17:13)
--- NOTE | 2024-08-06 21:10 | BSKYNEURO ---
[facility] Note # Demographics Consult Type: General Neurology Patient Location: Inpatient First Name: Dedra Last Name: Frankie Date of : 1960 Age: 64 Gender: Female Facility: [facility] Time of Initial Page ( Time): 08/06/2024 20:47 Time of Return Call (): 08/06/2024 20:47 # HPI History: Patient is coming to the ER for feeling dizzy, she felt she was going to pass out, felt disoriented and had numbness inside the mouth, tongue and head pr essure. She had a headache afterwards for few hours. H/O HTN, DM, HLD # Scores Level of Consciousness 1a: [0] = Alert; keenly responsive LOC Questions 1b: [0] = Answers both questions correctly LOC Commands 1c: [0] = Performs both tasks correctly Best Gaze 2: [0] = Normal Visual 3: [0] = No visual loss Facial Palsy 4: [0] = Normal symmetrical movements Motor Arm Left 5a: [0] = No drift Motor Arm Right 5b: [0] = No drift Motor Leg Left 6a: [0] = No drift Motor Leg Right 6b: [0] = No drift Limb Ataxia 7: [0] = Absent Sensory 8: [0] = Normal Best Language 9: [0] = No aphasia Dysarthria 10: [0] = Normal Extinction and Inattention 11: [0] = No abnormality NIHSS Total: 0 # Assessment Impression: - Other - Migraine (Complex) No episode of loss of awareness- overall symptoms may be suggestive of pre- syncope vs complex migraine. Need testing to rule out life-threatening problems # Plan Labs: - comprehensive metabolic panel - CBC - ua - ESR - TSH - Ammonia - hemoglobin A1c - lipid panel Imaging: (urgency: routine): - MRI Brain without contrast Diagnostic Test: - echo with bubble study - EEG Medication: - aspirin 81 mg daily Other: - If patient has any neurological deterioration please call me back immediately - will need event monitor or loop recorder as outpatient if atrial fibrillation not found as inpatient - neurology referral as outpatient - I have discussed my recommendations with the referring provider # Demographics First Name: Dedra Last Name: Frankie Facility: [facility] Yes CRISTIANE LEACH MD August 06, 2024 21:10
[2024-08-06] MEDS: INSULIN LANTUS (GLARGINE) 1 /0.01ml (100units/ml) SC SCH (22:00)
[2024-08-06] MEDS: ATORVASTATIN 20 MG TAB PO SCH (22:00)
[2024-08-07] VITALS (7 sets, daily range): BP systolic 128–150; BP diastolic 69–83; PULSE 70–97; RESP 15–17; TEMP 97.5–98.3; O2SAT 95–99
[2024-08-07] MEDS: amLODIPine BESYLATE 5 MG TAB PO SCH (09:38)
[2024-08-07] MEDS: ASPirin 81 mg TAB PO SCH (09:50)
--- NOTE | 2024-08-07 10:25 | DVHSR ---
APPROVED REPORT EXAM: Two-dimensional and M-mode echocardiogram with Doppler and color Doppler. Blood Pressure: 133/69 mmHg INDICATION Dizziness and Vertigo RISK FACTORS Obesity: Height: 5' 4", Weight: 223 DIMENSIONS LVDd4.0 (3.8-5.7cm)LA (2D)3.7 (1.9-4.0cm)Aortic Root3.3 (2.0-3.7cm) LVDs2.6 (2.5-4.0cm)LA (MM) (1.9-4.0cm)Aortic Cusp Exc1.9 (1.5-2.0cm) EF (%) 65.0 (55-70%)Rt. Atrium3.6 (1.9-4.0cm)Asc. Aorta cm IVSd1.0 (0.7-1.1cm)RV (D) (1.8-2.4cm) PWd0.9 (0.7-1.1cm) Mitral Valve MitralMitral Stenosis E wave0.60m/sMV Mean GR.mmHg A wave0.90m/sMV Peak GR.mmHg E/A ratio0.72D MVAcm2 Aortic Valve Aortic ValveAortic Stenosis V10.80m/Ananya Mean GR.3mmHg V21.10m/Ananya Peak GR.5mmHg LVOT Diameter2.1 (1.8-2.4cm)Doppler AVA2.52cm2 Pulmonic Valve V20.70m/s Tricuspid Valve TR Velocity2.30m/s [id number] Conclusion lvef 60% by visual estimate normal rv function normal atria no severe valve abnormalities noted
--- NOTE | 2024-08-07 13:23 | DVHPN2 ---
Reviewed: Care Plan, H&P, Labs, Medications, Previous Orders, Radiology Changes from previous H/P or p: No Changes Eyes: Vision change Respiratory: Cough, Shortness of breath Objective Vitals Vital Signs Date Time Temp Pulse Resp B/P (MAP) Pulse Ox O2 Delivery O2 Flow Rate FiO2 08/07/24 09:39 142/83 08/07/24 09:00 97.5 72 15 97 97.5 08/07/24 08:20 Room Air* 0 21 Intake/Output Intake and Output 08/07/24 07:00 Intake Total 1670 ml Balance 1670 ml Intake Oral 1370 ml IV Total 300 ml # Voids 6 # Bowel Movements 1 Medications Current Medications Medications Dose Ordered Sig/Natasha Route Start Time Stop Time Status Last Admin Dose Admin Ceftriaxone Sodium 50 ml @ 100 mls/hr DAILY@09 IV 08/06/24 09:00 08/07/24 09:41 100 MLS/HR Azithromycin 250 ml @ 125 mls/hr DAILY IV 08/06/24 10:00 08/07/24 09:41 125 MLS/HR Pantoprazole Sodium 40 mg DAILY IV 08/06/24 10:00 08/07/24 09:37 40 MG Atorvastatin Calcium 40 mg HS PO 08/06/24 22:00 08/06/24 22:00 40 MG Losartan Potassium 100 mg DAILY PO 08/06/24 10:00 08/07/24 09:39 100 MG Enoxaparin Sodium 40 mg DAILY SC 08/06/24 10:00 08/07/24 09:40 40 MG Acetaminophen/ Hydrocodone Bitart 1 tab Q4HPRN PRN PO 08/06/24 02:30 Acetaminophen 500 mg Q4HPRN PRN PO 08/06/24 02:30 08/07/24 06:04 500 MG Amlodipine Besylate 10 mg DAILY PO 08/07/24 10:00 08/07/24 09:38 10 MG Diagnostic Test (Pha) 1 strip ACHS 08/06/24 17:00 08/07/24 11:30 1 STRIP Insulin Human Regular ACHS SC 08/06/24 17:00 08/07/24 12:30 6 UNITS Dextrose 50 ml UD PRN IV 08/06/24 14:45 Insulin Glargine 14 units HS SC 08/06/24 22:00 08/06/24 22:00 14 UNITS Aspirin 81 mg DAILY PO 08/07/24 10:00 08/07/24 09:50 81 MG Laboratory Results Laboratory Tests 08/06/24 05:27 Coagulation Test 08/06/24 13:40 D-Dimer, Quantitative 0.59 mg/L FEU (0.0-0.49) H Urinalysis Test 08/05/24 12:33 Urine Color Light-yellow (Yellow) Urine Clarity Clear (Clear) Urine pH 5.5 (5.0-9.0) Urine Specific [place] 1.006 (1.001-1.035) Urine Protein Negative (Negative) Urine Ketones Negative (Negative) Urine Blood Negative /uL (Negative) Urine Nitrite Negative (Negative) Urine Bilirubin Negative (Negative) Urine Urobilinogen Normal mg/dL (Negative) Urine Leukocyte Esterase Negative /uL (Negative) Urine RBC <1 /hpf (0 - 4) Urine Microscopic WBC < 1 /HPF (0-5) Urine Squamous Epithelial Cells Few /hpf (<5) Urine Bacteria None seen /hpf (None Seen) Urine Glucose 4+ mg/dL (Normal) H Microbiology Microbiology Date/Time Source Procedure Growth Status 08/06/24 05:08 Nose MRSA Screen - Final Complete 08/05/24 23:58 Blood Blood Culture - Preliminary NO GROWTH AFTER 24 HOURS OF INCUBATION. Resulted Labs and/or images reviewed: Labs reviewed by me, Image(s) reviewed by me Assessment/Plan Assessment/Plan Dizziness and near-syncope unknown etiology : Cardiology consult Dr. Mirna wood, Echo 60 percent ejection fraction Tele neurology consult by Dr.Gurjeet Christensen who felt the patient may be having complex migraine Chest x-ray negative, CT head negative, chest CT negative Kidney ultrasound negative, flu test negative ,COVID test negative UTI ruled out Carotid ultrasound negative Accelerated hypertension blood pressure systolic 170: Amlodipine losartan Possible Community-acquired pneumonia: Rocephin azithromycin Uncontrolled diabetes with a A1c 10.3: Insulin sliding scale Acute Lactic acidosis Peptic ulcer disease Diverticulosis Solitary pulmonary nodule CPK normal D-dimer normal Time Spent 50 minutes Advanced care planning time 20 minutes Patient is full code PCP Dr Bobbi Magdaleno Plan discussed with: Patient Date of Service: August 07, 2024 Billing Provider: HINA OTTO MD Common Visit Codes: [id number] INP/OBS CARE(HIGH) HINA OTTO MD August 07, 2024 13:23
[2024-08-08] VITALS (9 sets, daily range): BP systolic 113–146; BP diastolic 49–80; PULSE 63–93; RESP 16–20; TEMP 97.7–98.5; O2SAT 60–98
--- NOTE | 2024-08-08 10:56 | ECG ---
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
--- NOTE | 2024-08-08 14:33 | DVHPN2 ---
Reviewed: Care Plan, H&P, Labs, Medications, Previous Orders, Radiology Changes from previous H/P or p: No Changes Eyes: Vision change Respiratory: Cough, Shortness of breath Objective Vitals Vital Signs Date Time Temp Pulse Resp B/P (MAP) Pulse Ox O2 Delivery O2 Flow Rate FiO2 08/08/24 10:02 127/69 08/08/24 09:00 98.5 78 17 94 98.5 08/08/24 08:20 Room Air* 0 21 Intake/Output Intake and Output 08/08/24 07:00 Intake Total 1490 ml Balance 1490 ml Intake Oral 1190 ml IV Total 300 ml # Voids 6 # Bowel Movements 2 Medications Current Medications Medications Dose Ordered Sig/Natasha Route Start Time Stop Time Status Last Admin Dose Admin Ceftriaxone Sodium 50 ml @ 100 mls/hr DAILY@09 IV 08/06/24 09:00 08/08/24 10:00 100 MLS/HR Azithromycin 250 ml @ 125 mls/hr DAILY IV 08/06/24 10:00 08/08/24 10:00 125 MLS/HR Pantoprazole Sodium 40 mg DAILY IV 08/06/24 10:00 08/07/24 09:37 40 MG Atorvastatin Calcium 40 mg HS PO 08/06/24 22:00 08/07/24 22:00 40 MG Losartan Potassium 100 mg DAILY PO 08/06/24 10:00 08/08/24 10:02 100 MG Enoxaparin Sodium 40 mg DAILY SC 08/06/24 10:00 08/08/24 10:01 40 MG Acetaminophen/ Hydrocodone Bitart 1 tab Q4HPRN PRN PO 08/06/24 02:30 Acetaminophen 500 mg Q4HPRN PRN PO 08/06/24 02:30 08/07/24 06:04 500 MG Amlodipine Besylate 10 mg DAILY PO 08/07/24 10:00 08/08/24 10:01 10 MG Diagnostic Test (Pha) 1 strip ACHS 08/06/24 17:00 08/08/24 11:30 1 STRIP Insulin Human Regular ACHS SC 08/06/24 17:00 08/08/24 11:30 8 UNITS Dextrose 50 ml UD PRN IV 08/06/24 14:45 Insulin Glargine 14 units HS SC 08/06/24 22:00 08/06/24 22:00 14 UNITS Aspirin 81 mg DAILY PO 08/07/24 10:00 08/08/24 10:02 81 MG Laboratory Results Laboratory Tests 08/06/24 05:27 Urinalysis Test 08/05/24 12:33 Urine Color Light-yellow (Yellow) Urine Clarity Clear (Clear) Urine pH 5.5 (5.0-9.0) Urine Specific [place] 1.006 (1.001-1.035) Urine Protein Negative (Negative) Urine Ketones Negative (Negative) Urine Blood Negative /uL (Negative) Urine Nitrite Negative (Negative) Urine Bilirubin Negative (Negative) Urine Urobilinogen Normal mg/dL (Negative) Urine Leukocyte Esterase Negative /uL (Negative) Urine RBC <1 /hpf (0 - 4) Urine Microscopic WBC < 1 /HPF (0-5) Urine Squamous Epithelial Cells Few /hpf (<5) Urine Bacteria None seen /hpf (None Seen) Urine Glucose 4+ mg/dL (Normal) H Microbiology Microbiology Date/Time Source Procedure Growth Status 08/06/24 05:08 Nose MRSA Screen - Final Complete 08/05/24 23:58 Blood Blood Culture - Preliminary NO GROWTH AFTER 48 HOURS OF INCUBATION. Resulted Labs and/or images reviewed: Labs reviewed by me, Image(s) reviewed by me Assessment/Plan Assessment/Plan Dizziness and near-syncope unknown etiology : Cardiology consult Dr. Bradley appreciated, Echo 60 % ejection fraction Tele neurology consult by Dr.Gurjeet Christensen who felt the patient may be having complex migraine, advised Holter monitor Chest x-ray negative, CT head negative, chest CT negative Kidney ultrasound negative, flu test negative ,COVID test negative UTI ruled out Carotid ultrasound negative Accelerated hypertension blood pressure systolic 170: Amlodipine losartan Possible Community-acquired pneumonia: Rocephin azithromycin Uncontrolled diabetes with a A1c 10.3: Insulin sliding scale Acute Lactic acidosis Peptic ulcer disease Diverticulosis Solitary pulmonary nodule CPK normal D-dimer normal Time Spent 50 minutes Advanced care planning time 20 minutes Patient is full code PCP Dr Bobbi Magdaleno Per Patient, she was fully worked up for dizziness by Dr. Palmer in the past. Plan discussed with: Patient Date of Service: August 08, 2024 Billing Provider: HINA OTTO MD Common Visit Codes: [id number] INP/OBS CARE(HIGH) HINA OTTO MD August 08, 2024 14:33
[2024-08-09 01:00] VITALS: BP 139/74; PULSE 61; RESP 12; TEMP 97.8; O2SAT 100
[2024-08-09 05:00] VITALS: BP 105/38; PULSE 77; RESP 16; TEMP 97.5; O2SAT 97
[2024-08-09 08:00] VITALS: PULSE 73; PULSE 91; RESP 18; O2SAT 94
[2024-08-09 09:00] VITALS: BP 139/79; PULSE 72; RESP 16; TEMP 98; O2SAT 94
[2024-08-09 13:00] VITALS: BP 154/77; PULSE 67; RESP 17; TEMP 97.9; O2SAT 97
[2024-08-09] MEDS ORDERED: DOXY100C79 PO (13:08)
--- NOTE | 2024-08-09 13:09 | DVHPN2 ---
Reviewed: Care Plan, H&P, Labs, Medications, Previous Orders, Radiology Changes from previous H/P or p: No Changes Eyes: Vision change Respiratory: Cough, Shortness of breath Objective Vitals Vital Signs Date Time Temp Pulse Resp B/P (MAP) Pulse Ox O2 Delivery O2 Flow Rate FiO2 08/09/24 09:03 138/79 08/09/24 09:00 98.0 72 16 94 98.0 08/09/24 08:00 Room Air* 0 21 Intake/Output Intake and Output 08/09/24 07:00 Intake Total 1790 ml Balance 1790 ml Intake Oral 1490 ml IV Total 300 ml # Voids 9 # Bowel Movements 1 Medications Current Medications Medications Dose Ordered Sig/Natasha Route Start Time Stop Time Status Last Admin Dose Admin Ceftriaxone Sodium 50 ml @ 100 mls/hr DAILY@09 IV 08/06/24 09:00 08/09/24 08:59 100 MLS/HR Azithromycin 250 ml @ 125 mls/hr DAILY IV 08/06/24 10:00 08/09/24 11:34 125 MLS/HR Pantoprazole Sodium 40 mg DAILY IV 08/06/24 10:00 08/09/24 09:00 40 MG Atorvastatin Calcium 40 mg HS PO 08/06/24 22:00 08/08/24 22:28 40 MG Losartan Potassium 100 mg DAILY PO 08/06/24 10:00 08/09/24 09:03 100 MG Enoxaparin Sodium 40 mg DAILY SC 08/06/24 10:00 08/09/24 09:02 40 MG Acetaminophen/ Hydrocodone Bitart 1 tab Q4HPRN PRN PO 08/06/24 02:30 Acetaminophen 500 mg Q4HPRN PRN PO 08/06/24 02:30 08/08/24 22:40 500 MG Amlodipine Besylate 10 mg DAILY PO 08/07/24 10:00 08/09/24 09:01 10 MG Diagnostic Test (Pha) 1 strip ACHS 08/06/24 17:00 08/09/24 11:32 1 STRIP Insulin Human Regular ACHS SC 08/06/24 17:00 08/09/24 11:32 4 UNITS Dextrose 50 ml UD PRN IV 08/06/24 14:45 Insulin Glargine 14 units HS SC 08/06/24 22:00 08/08/24 22:37 14 UNITS Aspirin 81 mg DAILY PO 08/07/24 10:00 08/09/24 09:01 81 MG Laboratory Results Laboratory Tests 08/06/24 05:27 Urinalysis Test 08/05/24 12:33 Urine Color Light-yellow (Yellow) Urine Clarity Clear (Clear) Urine pH 5.5 (5.0-9.0) Urine Specific [place] 1.006 (1.001-1.035) Urine Protein Negative (Negative) Urine Ketones Negative (Negative) Urine Blood Negative /uL (Negative) Urine Nitrite Negative (Negative) Urine Bilirubin Negative (Negative) Urine Urobilinogen Normal mg/dL (Negative) Urine Leukocyte Esterase Negative /uL (Negative) Urine RBC <1 /hpf (0 - 4) Urine Microscopic WBC < 1 /HPF (0-5) Urine Squamous Epithelial Cells Few /hpf (<5) Urine Bacteria None seen /hpf (None Seen) Urine Glucose 4+ mg/dL (Normal) H Microbiology Microbiology Date/Time Source Procedure Growth Status 08/06/24 05:08 Nose MRSA Screen - Final Complete 08/05/24 23:58 Blood Blood Culture - Preliminary NO GROWTH AFTER 72 HOURS OF INCUBATION. Resulted Labs and/or images reviewed: Labs reviewed by me, Image(s) reviewed by me Assessment/Plan Assessment/Plan Dizziness and near-syncope unknown etiology : Cardiology consult Dr. Bradley appreciated, Echo 60 % ejection fraction Tele neurology consult by Dr.Gurjeet Christensen who felt the patient may be having complex migraine, advised Holter monitor Chest x-ray negative, CT head negative, chest CT negative Kidney ultrasound negative, flu test negative ,COVID test negative UTI ruled out Carotid ultrasound negative Accelerated hypertension blood pressure systolic 170: Amlodipine losartan Possible Community-acquired pneumonia: Rocephin azithromycin Uncontrolled diabetes with a A1c 10.3: Insulin sliding scale Acute Lactic acidosis Peptic ulcer disease Diverticulosis Solitary pulmonary nodule CPK normal D-dimer normal Time Spent 50 minutes Advanced care planning time 20 minutes Patient is full code PCP Dr Bobbi Magdaleno Per Patient, she was fully worked up for dizziness by Dr. Palmer in the past. Plan discussed with: Patient Date of Service: August 09, 2024 Billing Provider: HINA OTTO MD Common Visit Codes: [id number] INP/OBS CARE(HIGH) HINA OTTO MD August 09, 2024 13:09
--- NOTE | 2024-08-09 13:14 | DVHDS2 ---
Discharge Summary Date of Admission August 05, 2024 at 22:25 Date of Discharge: August 09, 2024 Admitting Diagnosis Dizziness Wounds: None Labs/Diagnostic Data: Laboratory Results Test 08/09/24 11:27 08/06/24 13:40 08/06/24 05:27 08/06/24 00:10 POC Glucose 215 mg/dl (70-106) D-Dimer, Quantitative 0.59 mg/L FEU (0.0-0.49) White Blood Count 7.2 10^3/uL (4.4-10.8) Red Blood Count 4.57 10^6/uL (4.0-5.20) Hemoglobin 12.7 g/dL (12.2-16.2) Hematocrit 38.2 % (36.0-46.0) Mean Corpuscular Volume 83.7 fL (80.0-100.0) Mean Corpuscular Hemoglobin 27.8 pg (28.0-32.0) Mean Corpuscular Hemoglobin Concent 33.2 g/dL (32.0-36.0) Red Cell Distribution Width 13.6 % (11.8-14.3) Platelet Count 170 10^3/uL (140-450) Mean Platelet Volume 8.7 fL (6.9-10.8) Neutrophils (%) (Auto) 68.7 % (37.0-80.0) Lymphocytes (%) (Auto) 21.2 % (10.0-50.0) Monocytes (%) (Auto) 6.5 % (0.0-12.0) Eosinophils (%) (Auto) 2.8 % (0.0-7.0) Basophils (%) (Auto) 0.8 % (0.0-2.0) Neutrophils # (Auto) 4.9 10 ^3/uL (1.6-8.6) Lymphocytes # (Auto) 1.5 10 ^3/uL (0.4-5.4) Monocytes # (Auto) 0.5 10 ^3/uL (0-1.3) Eosinophils # (Auto) 0.2 10 ^3/uL (0-0.8) Basophils # (Auto) 0.1 10 ^3/uL (0-0.2) Nucleated Red Blood Cells 0.3 % Prothrombin Time 10.9 sec (9.3-11.8) Prothrombin Time INR 1.03 (0.9-1.15) Activated Partial Thromboplast Time 23.2 SEC (24.5-34.5) Sodium Level 140 mmol/L (136-145) Potassium Level 4.6 mmol/L (3.5-5.1) Chloride Level 110 mmol/L (98-107) Carbon Dioxide Level 20 mmol/L (20-31) Anion Gap 10 (5-15) Blood Urea Nitrogen 21 mg/dL (9-23) Creatinine 1.30 mg/dL (0.550-1.02) Glomerular Filtration Rate Calc 45 mL/min (>90) BUN/Creatinine Ratio 16.2 (10.0-20.0) Serum Glucose 321 mg/dL (74-106) Hemoglobin A1c 10.3 % A1C (<5.7) Calcium Level 9.3 mg/dL (8.7-10.4) Total Bilirubin 1.0 mg/dL (0.2-1.0) Aspartate Amino Transferase (AST) 21 U/L (13-40) Alanine Aminotransferase (ALT) 33 U/L (7-40) Alkaline Phosphatase 67 U/L (46-116) Creatine Kinase 62 U/L (34-145) Total Protein 6.2 g/dL (5.7-8.2) Albumin 4.0 g/dL (3.2-4.8) Triglycerides Level 151 mg/dL (< 150) Cholesterol Level 120 mg/dL (< 200) LDL Cholesterol 61 mg/dL (< 100) HDL Cholesterol 36 mg/dL (40-59) Vitamin B12 Level 574 pg/mL (211-911) Vitamin D 25-Hydroxy 55.5 ng/mL (30.0-100) Thyroid Stimulating Hormone (TSH) 2.83 uIU/mL (0.55-4.78) Influenza Type A Antigen Negative (Negative) Influenza Type B Antigen Negative (Negative) SARS-CoV-2 Antigen (Rapid) Negative (NEGATIVE) Test 08/05/24 23:58 08/05/24 16:02 08/05/24 14:23 08/05/24 14:16 Magnesium Level 1.5 mg/dL (1.6-2.6) Troponin I High Sensitivity 4 ng/L (</=34) Blood Gas Specimen Type Arterial Blood Gas Sample Site Right radial Blood Gas Patient Temperature 37.0 Arterial Blood Date Drawn [id number] Arterial Blood pH 7.412 (7.350-7.450) Arterial Blood Partial Pressure CO2 25.1 mmHg (32.0-45.0) Arterial Blood Partial Pressure O2 84.8 mmHg (83.0-108.0) Arterial Blood HCO3 15.6 mmol/L (21.0-28.0) Arterial Blood Oxygen Saturation 97.0 % (94.0-98.0) Arterial Blood Base Excess -7.1 mmol/L (-2.0-3.0) Arterial Blood Oxyhemoglobin 96.3 % (94.0-98.0) Arterial Blood Carboxyhemoglobin 0.4 % (0.5-1.5) Arterial Blood Methemoglobin 0.3 % (0.0-1.5) Gopal Test Yes Blood Gas Total Hemoglobin 14.30 g/dL (12.0-16.0) Blood Gas Modality Room air FiO2 % 21.0 Lactic Acid Level 1.4 mmol/L (0.4-2.0) Test 08/05/24 12:33 Urine Color Light-yellow (Yellow) Urine Clarity Clear (Clear) Urine pH 5.5 (5.0-9.0) Urine Specific [place] 1.006 (1.001-1.035) Urine Protein Negative (Negative) Urine Ketones Negative (Negative) Urine Blood Negative /uL (Negative) Urine Nitrite Negative (Negative) Urine Bilirubin Negative (Negative) Urine Urobilinogen Normal mg/dL (Negative) Urine Leukocyte Esterase Negative /uL (Negative) Urine RBC <1 /hpf (0 - 4) Urine Microscopic WBC < 1 /HPF (0-5) Urine Squamous Epithelial Cells Few /hpf (<5) Urine Bacteria None seen /hpf (None Seen) Urine Glucose 4+ mg/dL (Normal) Other Laboratory Tests 08/06/24 05:27 Brief Hx & Hospital Course: 64-year-old female with a history of hypotension diverticulosis peptic ulcer disease diabetes came in for dizziness and near-syncope. Cardiology consult by Dr. Bradley ejection fraction 60 percent tele neurology consult by Dr. Mcgarry who felt the patient may be having complex migraine advised Holter monitor. D- dimer normal CPK normal chest x-ray negative CT head negative CT chest negative kidney ultrasound negative flu test negative COVID test negative UTI ruled out carotid ultrasound negative. The patient feels better and ambulating with a stable vital signs. Patient has a community-acquired pneumonia treated with the Rocephin and azithromycin. Being discharged home on doxycycline. She will follow up with Dr. Palmer. Patient she had complete workup by Dr. Palmer the past which all negative. Consults/Reason for consult Tele neurologist Operations or Procedures CT head MRI brain Carotid ultrasound Echocardiogram Condition at Discharge: Fair Final Diagnosis/Problems List Dizziness and near-syncope unknown etiology : Cardiology consult Dr. Bradley appreciated, Echo 60 % ejection fraction Tele neurology consult by Dr.Gurjeet Christensen who felt the patient may be having complex migraine, advised Holter monitor Chest x-ray negative, CT head negative, chest CT negative Kidney ultrasound negative, flu test negative ,COVID test negative UTI ruled out Carotid ultrasound negative Accelerated hypertension blood pressure systolic 170: Amlodipine losartan Possible Community-acquired pneumonia: Rocephin azithromycin Uncontrolled diabetes with a A1c 10.3: Insulin sliding scale Acute Lactic acidosis Peptic ulcer disease Diverticulosis Solitary pulmonary nodule CPK normal D-dimer normal Time Spent 50 minutes Advanced care planning time 20 minutes Patient is full code PCP Dr Bobbi Magdaleno Per Patient, she was fully worked up for dizziness by Dr. Palmer in the past. Discharge Disposition: Home Discharge Instruct/Medications Diet: Cardiac 2g Na,low cholest Activity: Light activity Follow Up/Referral: Follow up With the primary Dr Dr Bobbi Magdaleno in one week Follow up with the knife edger Dr. Palmer in 10 days for arranging Event monitor Medications: Doxycycline Transmitted to [facility] 35 (Time Taken for discharge summary 35 minutes) Discharge Statement: "Patient was advised to return to the ER or call 911 if any headaches, dizziness, shortness of breath, chest pain, abdominal pain, bleeding, fevers, or worsening of medical condition. Patient was counseled about treatment plan, medications, possible side effects, patientverbalized understanding. All questions were answered to the best of my ability. This discharge took greater then 30 minutes in planning, reviewing documentation, counseling the patient, and discussing with other team members." ASSESSMENT ASSESSMENT Hospital Course Improved Assessment Dizziness and near-syncope unknown etiology : Cardiology consult Dr. Bradley appreciated, Echo 60 % ejection fraction Tele neurology consult by Dr.Gurjeet Christensen who felt the patient may be having complex migraine, advised Holter monitor Chest x-ray negative, CT head negative, chest CT negative Kidney ultrasound negative, flu test negative ,COVID test negative UTI ruled out Carotid ultrasound negative Accelerated hypertension blood pressure systolic 170: Amlodipine losartan Possible Community-acquired pneumonia: Rocephin azithromycin Uncontrolled diabetes with a A1c 10.3: Insulin sliding scale Acute Lactic acidosis Peptic ulcer disease Diverticulosis Solitary pulmonary nodule CPK normal D-dimer normal Time Spent 50 minutes Advanced care planning time 20 minutes Patient is full code PCP Dr Bobbi Magdaleno Per Patient, she was fully worked up for dizziness by Dr. Palmer in the past. Date of Service: August 09, 2024 Billing Provider: HINA OTTO MD Common Visit Codes: [id number] DISCH DAY >30min HINA OTTO MD August 09, 2024 13:14
[2024-08-09 14:04] VITALS: BP 138/79; TEMP 36.7
== END 2024-08-09 15:45 | disposition home or self-care (01) | DRG 194 ==
LOC: ER 11:36 → OVERFLOW 22:25 → TELE-WESTW 08-06 05:55
PROVIDERS: ADMIT Family Medicine; ATTEND Family Medicine
DX: J18.9 Pneumonia, unspecified organism (principal); E87.20 Acidosis, unspecified; I16.9 Hypertensive crisis, unspecified; G43.909 Migraine, unspecified, not intractable, without status migrainosus; E11.65 Type 2 diabetes mellitus with hyperglycemia; E66.9 Obesity, unspecified; E78.5 Hyperlipidemia, unspecified; Z20.822 Contact with and (suspected) exposure to COVID-19; K57.30 Diverticulosis of large intestine without perforation or abscess without bleeding; N18.30 Chronic kidney disease, stage 3 unspecified; J43.9 Emphysema, unspecified; K27.9 Peptic ulcer, site unspecified, unspecified as acute or chronic, without hemorrhage or perforation; E83.42 Hypomagnesemia; E86.0 Dehydration; E11.22 Type 2 diabetes mellitus with diabetic chronic kidney disease; I12.9 Hypertensive chronic kidney disease with stage 1 through stage 4 chronic kidney disease, or unspecified chronic kidney disease; R91.1 Solitary pulmonary nodule; Z90.49 Acquired absence of other specified parts of digestive tract; Z83.3 Family history of diabetes mellitus; Z87.891 Personal history of nicotine dependence; Z82.49 Family history of ischemic heart disease and other diseases of the circulatory system; Z79.891 Long term (current) use of opiate analgesic; Z79.1 Long term (current) use of non-steroidal anti-inflammatories (NSAID); Z79.899 Other long term (current) drug therapy; Z68.38 Body mass index [BMI] 38.0-38.9, adult; Z79.84 Long term (current) use of oral hypoglycemic drugs
CPT/HCPCS: 36415; 36600; 70450; 71045; 71250; 76775; 80053; 80061; 81001; 82306; 82550; 82607; 82805; 82962; 83036; 83605; 83735; 84443; 84484; 85025; 85379; 85610; 85730; 87040; 87081; 87426; 87804; 93005; 93306; 93886; 96365; 97116; 97163; 97530; G0378; J1815; J2470

== ENCOUNTER 2024-11-17 09:50 | Outpatient (CLI) | payer OTHER, MEDICAID ==
[~2024-11-17] VITALS: Ht 162.6 cm; Wt 97.5 kg
[~2024-11-17 09:50] MED LIST changes: +AML5T PO; +ATOR40TA52 PO; +DOXY100C79 PO; -GLYB5TAB9 PO; -LOS25T PO; +LOSA-534 PO; -LOVA20TA4 PO; +PANT40TA2 PO
[2024-11-17] MEDS: REGADENOSON 0.4 MG/5 ML SYRG IV ONE ×2 (12:56→13:04)
--- NOTE | 2024-11-17 16:08 | DVHSR ---
APPROVED REPORT Exam: Nuclear Stress Test BMI: 0 Stress Test Details HR Max Heart Rate (APMHR): 154.501009 bpm Target HR (85% APMHR): 130.861434 bpm BP ECG Stress ECG Conclusion lvef 64% normal perfusion scan no ischemai NM EXAM: Myocardial Perfusion REST/STRESS Imaging Protocol: Rest Tc-99m/Stress Tc-99m 1 day Resting Data Rest SPECT myocardial perfusion imaging was performed in supine position 60 minutes following the int ravenous injection of 10.9 mCi of Tc-99m Sestamibi. Time of rest injection: 10:40 Date: 11/17/2024 Time of rest imagin:40 Date: 11/17/2024 Administration Route: IV Administration Site: Left Arm Pharmacologic Stress Pharmacologic stress test was performed by injecting Regadenoson 0.4 mg IV push followed by the intra venous injection of 31.0 mCi of Tc-99m Sestamibi. Time of stress injection: 13:07 Date: 11/17/2024 Time of stress imagin:07 Date: 11/17/2024 Administration Route: IV Administration Site: Left Arm Gated Stress SPECT was performed 60 minutes after stress injection. The images were gated to evaluate regional wall motion and calculate left ventricular ejection fracti on. Stress only was performed in the Supine position. Nuclear Conclusion Nuclear Findings: negative for ischemia lvef 64% normal perfusion scan no ischemai
== END 2024-11-17 17:00 | disposition home or self-care (01) ==
LOC: XYW 09:50
PROVIDERS: ATTEND Internal Medicine
DX: R07.9 Chest pain, unspecified (principal)
CPT/HCPCS: 78452; 93017; A9500; J2785